=== PATIENT | female | born 1955 | race Caucasian/White ===

== ENCOUNTER 2016-10-07 01:48 | Emergency (ER) | payer OTHER ==
[~2016-10-07] VITALS: Ht 157.5 cm; Wt 75.0 kg
[2016-10-07 01:58] VITALS: BP 142/69; PULSE 70; RESP 18; TEMP 98.1; O2SAT 97
[2016-10-07] MEDS ORDERED: SODIUM CHLORIDE 0.9% FLUSH 5 ML FLUSH IVF PRN (02:00)
--- NOTE | 2016-10-07 02:00 | PD ---
HPI Chief Complaint: Abdominal Pain Time Seen by Provider: 01:54 Travel History International Travel<30 days: No Contact w/Intl Traveler<30days: No Traveled to known affect area: No History of Present Illness HPI This is a 61-year-old female who has a history of bipolar disorder who presents to the emergency department with lower abdominal pain that started 4 days ago, constant, worse in the evenings, stabbing, worse on the right, with no associated fever, chills, vomiting, diarrhea or constipation. She has had some nausea. She's never had pain like this before. She denies any dysuria or hematuria. She denies any history of abdominal surgeries. PFSH Past Medical History Hx Anticoagulant Therapy: Yes (ASA) Asthma: Yes Bipolar Disorder: Yes Anxiety: Yes Heart Rhythm Problems: No Cancer: Yes (hx of thyroid ca) Cardiac Catheterization: No Cardiovascular Problems: Yes (HTN) High Cholesterol: No Chemotherapy: No Congestive Heart Failure: No Cerebrovascular Accident: No Diabetes: No Diminished Hearing: No Heparin Induced Thrombocytopen: No Hypertension: Yes Respiratory: Yes (BRONCHITIS) Immunizations Current: Yes Seizures: Yes Menopausal: Yes : 1 Para: 2 : 1 Past Surgical History Section: Yes Coronary Artery Bypass Graft: No Hysterectomy: No Other Surgery: Yes (throat ca) Family History Family Hypercholesterolemia: Yes Social History Alcohol Use: Yes (OCC) Tobacco Use: Yes Substance Use: No Allergies-Medications (Allergen,Severity, Reaction): Uncoded Allergies: BP MED (Allergy, Severe, 04/13/15) Reported Meds & Prescriptions Reported Meds & Active Scripts Active Reported Alendronate (Alendronate Sodium) 5 Mg Tab Unknown Dose PO DAILY Depakote DR (Divalproex Sodium) 500 Mg Tabdr 500 Mg PO TID Zocor (Simvastatin) 10 Mg Tab Unknown Dose PO DAILY Fluoxetine (Fluoxetine HCl) 40 Mg Cap 40 Cap PO DAILY Aspirin 81 Mg Chew 800 Mg CHEW DAILY Review of Systems Except as stated in HPI: all other systems reviewed are Neg Physical Exam Narrative GENERAL:Well appearing, no acute distress SKIN: Warm and dry. HEAD: Atraumatic. Normocephalic. EYES: Pupils equal and round. No injection or drainage. ENT: Moist mucous membranes NECK: Trachea midline. CARDIOVASCULAR: Regular rate and rhythm. No murmur appreciated. RESPIRATORY: Clear to auscultation. Breath sounds equal bilaterally. GASTROINTESTINAL: Abdomen soft, tender to palpation in the right lower quadrant and suprapubic region with no guarding. MUSCULOSKELETAL: No obvious deformities. NEUROLOGICAL: Awake and alert. No obvious cranial nerve deficits. Moving all extremities. PSYCHIATRIC: Appropriate mood and affect; insight and judgment normal. Data Data Last Documented VS Vital Signs Date Time Temp Pulse Resp B/P Pulse Ox O2 Delivery O2 Flow Rate FiO2 10/07/16 04:04 73 18 164/69 97 Room Air 10/07/16 01:58 98.1 Orders Complete Blood Count With Diff (10/07/16 01:54) Comprehensive Metabolic Panel (10/07/16 01:54) Lipase (10/07/16 01:54) Urinalysis - C+S If Indicated (10/07/16 01:54) Ct Abd/Pel W Iv Contrast(Rout) (10/07/16 01:54) Iv Access Insert/Monitor (10/07/16 01:54) Ecg Monitoring (10/07/16 01:54) Oximetry (10/07/16 01:54) Sodium Chloride 0.9% Flush (Ns Flush) (10/07/16 02:00) Iodixanol 320 Inj (Rad Ct) (Visipaque 32 (10/07/16 03:23) Cath For Specimen (10/07/16 03:58) Labs Laboratory Tests Test 10/07/16 10/07/16 02:00 04:00 White Blood Count 7.9 TH/MM3 Red Blood Count 3.60 MIL/MM3 Hemoglobin 11.6 GM/DL Hematocrit 33.8 % Mean Corpuscular Volume 94.1 FL Mean Corpuscular Hemoglobin 32.1 PG Mean Corpuscular Hemoglobin 34.2 % Concent Red Cell Distribution Width 13.7 % Platelet Count 213 TH/MM3 Mean Platelet Volume 8.8 FL Neutrophils (%) (Auto) 47.7 % Lymphocytes (%) (Auto) 38.5 % Monocytes (%) (Auto) 9.7 % Eosinophils (%) (Auto) 3.0 % Basophils (%) (Auto) 1.1 % Neutrophils # (Auto) 3.7 TH/MM3 Lymphocytes # (Auto) 3.0 TH/MM3 Monocytes # (Auto) 0.8 TH/MM3 Eosinophils # (Auto) 0.2 TH/MM3 Basophils # (Auto) 0.1 TH/MM3 CBC Comment DIFF FINAL Differential Comment Sodium Level 142 MEQ/L Potassium Level 4.2 MEQ/L Chloride Level 108 MEQ/L Carbon Dioxide Level 25.8 MEQ/L Anion Gap 8 MEQ/L Blood Urea Nitrogen 25 MG/DL Creatinine 1.40 MG/DL Estimat Glomerular Filtration 38 ML/MIN Rate Random Glucose 100 MG/DL Calcium Level 8.3 MG/DL Total Bilirubin 0.1 MG/DL Aspartate Amino Transf 10 U/L (AST/SGOT) Alanine Aminotransferase 13 U/L (ALT/SGPT) Alkaline Phosphatase 66 U/L Total Protein 6.3 GM/DL Albumin 2.7 GM/DL Lipase 410 U/L Urine Color LIGHT-YELLOW Urine Turbidity CLEAR Urine pH 6.5 Urine Specific [place] 1.005 Urine Protein 30 mg/dL Urine Glucose (UA) NEG mg/dL Urine Ketones NEG mg/dL Urine Occult Blood NEG Urine Nitrite NEG Urine Bilirubin NEG Urine Urobilinogen LESS THAN 2.0 MG/DL Urine Leukocyte Esterase NEG Urine RBC 1 /hpf Urine WBC 2 /hpf Urine Bacteria RARE /hpf Microscopic Urinalysis Comment CULT NOT INDICATED MDM Medical Decision Making Medical Screen Exam Complete: Yes Emergency Medical Condition: Yes Interpretation(s) Afebrile, no tachycardia, hypertensive No leukocytosis Renal insufficiency similar to prior Lipase is slightly elevated Last 24 hours Impressions Abdomen/Pelvis CT 10/07/16 0154 Signed Impressions: Service Date/Time: Sunday, October 07, 2016 03:19 - CONCLUSION: 1. Moderate distention of the bladder. 2. Atherosclerosis. 3. Renal parenchymal thinning and numerous tiny cortical cysts. 4. Small hiatal hernia. Ramsey Esquivel MD Differential Diagnosis Appendicitis, colitis, nephrolithiasis, pyelonephritis, urinary tract infection Narrative Course This is a 61-year-old female who presents to the emergency department with lower abdominal pain, worse in the right concerning for appendicitis. She was placed on a monitor and an IV was established. Labs are obtained which were reassuring. CT abdomen and pelvis was negative for appendicitis and demonstrates some bladder distention. She was able to void without difficulty in the emergency Department. I put a [id number] ultrasound on her and she looked like she had about 300 cc of postvoid residual. I offered to place a Del Angel catheter to see if her symptoms resolved but she declined. She says she feels 100% better and she wants to sleep and go home. Diagnosis Primary Impression: Abdominal pain Qualified Code: R10.30 - Lower abdominal pain Patient Instructions: General Instructions Additional Instructions: If you develop severe or worsening abdominal pain, fever>100.4, persistent vomiting or inability to eat or drink return to the emergency department immediately. Follow up with your primary care physician in 1-2 days for a check-up. Med/Other Pt SpecificInfo: No Change to Meds Disposition: 01 DISCHARGE HOME Condition: Stable Farheen Feliz MD Oct 07, 2016 02:00
[2016-10-07] MEDS ORDERED: ZOCO10TA PO (02:08)
[2016-10-07] MEDS ORDERED: ALEN5TAB PO (02:08)
[2016-10-07] MEDS ORDERED: FLUO40CA PO (02:08)
[2016-10-07] MEDS ORDERED: DEPA500T PO (02:08)
[2016-10-07] MEDS ORDERED: ASPI81CH CHEW (02:08)
[2016-10-07 02:09] VITALS: O2SAT 99
[2016-10-07 02:17] LABS: AUTOMATED NEUTROPHIL # 3.7 TH/MM3 (1.8-7.7); BASOPHIL # 0.1 TH/MM3 (0-0.2); BASOPHIL % 1.1 % (0.0-2.0); EOSINOPHIL # 0.2 TH/MM3 (0-0.4); HEMATOCRIT 33.8 % (35.0-46.0); HEMO FLAGS DIFF FINAL; LYMPH % 38.5 % (9.0-44.0); MEAN CELL VOLUME 94.1 FL (80.0-100.0); MEAN CORPUSCULAR HEMOGLOBIN 32.1 PG (27.0-34.0); MEAN CORPUSCULAR HGB CONC 34.2 % (32.0-36.0); MONO % 9.7 % (0.0-8.0); NEUT % 47.7 % (16.0-70.0); PLATELET COUNT 213 TH/MM3 (150-450); RED CELL DISTRIBUTION WIDTH 13.7 % (11.6-17.2); WHITE BLOOD COUNT 7.9 TH/MM3 (4.0-11.0)
[2016-10-07 02:47] LABS: ALT (GPT) 13 U/L (10-53); ANION GAP 8 MEQ/L (5-15); AST (GOT) 10 U/L (15-37); BICARBONATE 25.8 MEQ/L (21.0-32.0); BLOOD UREA NITROGEN 25 MG/DL (7-18); CHLORIDE 108 MEQ/L (98-107); GLOMERULAR FILTRATION RATE 38 ML/MIN (>89); POTASSIUM 4.2 MEQ/L (3.5-5.1); SODIUM (NA) 142 MEQ/L (136-145)
[2016-10-07 02:49] LABS: ALKALINE PHOSPHATASE 66 U/L (45-117); TOTAL BILIRUBIN ADULT 0.1 MG/DL (0.2-1.0)
[2016-10-07] MEDS ORDERED: IODIXANOL 320 MG/ML 10 ML VIAL (for Rad CT) IV ONE (03:23)
--- NOTE | 2016-10-07 03:38 | RADRPT ---
EXAM DATE/TIME: 10/07/2016 03:19 [facility] COMPARISON: No previous studies available for comparison. INDICATIONS : Abdominal pain. IV CONTRAST: 50 cc Visipaque (iodixanol) IV ORAL CONTRAST: No oral contrast ingested. RADIATION DOSE: 9.35 CTDIvol (mGy) MEDICAL HISTORY : Hypertension. Carcinoma, pharyngeal. SURGICAL HISTORY : section. ENCOUNTER: Initial ACUITY: 4 - 6 months PAIN SCALE: 7/10 LOCATION: abdomen TECHNIQUE: Volumetric scanning of the abdomen and pelvis was performed. Using automated exposure control and ad justment of the mA and/or kV according to patient size, radiation dose was kept as low as reasonably achievable to obtain optimal diagnostic quality images. FINDINGS: There is a small hiatal hernia noted. Gallbladder is contracted. Liver, spleen, pancreas, bilateral a drenal glands are unremarkable. There are tiny cortical cysts present within both kidneys with mild p arenchymal thinning. Atherosclerotic calcifications of the aorta and iliac vessels are seen. There is moderate distention of the urinary bladder. The uterus and adnexa are unremarkable. No evidence of b owel obstruction, free fluid or free air. No adenopathy or aneurysm. There is severe degenerative dis c disease at the lumbosacral junction. The lung bases are clear. CONCLUSION: 1. Moderate distention of the bladder. 2. Atherosclerosis. 3. Renal parenchymal thinning and numerous tiny cortical cysts. 4. Small hiatal hernia. Ramsey Esquivel MD on October 07, 2016 at 3:34 Board Certified Radiologist. This report was verified electronically.
[2016-10-07 04:04] VITALS: BP 164/69; PULSE 73; RESP 18; O2SAT 97
[2016-10-07 04:25] LABS: BACTERIA, URINE RARE /hpf; BLOOD, URINE NEG (NEG); COMMENT (UR) CULT NOT INDICATED; CULTURE IF INDICATED CULT NOT INDICATED; GLUCOSE,URINE NEG (NEG); KETONE, URINE NEG (NEG); NITRITE,URINE NEG (NEG); PH, URINE 6.5 (5.0-8.5); URINE COLOR LIGHT-YELLOW (YELLW/STRAW)
[2016-10-07 05:42] VITALS: BP 164/69; PULSE 75; RESP 18; O2SAT 97
== END 2016-10-07 06:22 | disposition home or self-care (01) ==
LOC: NEPC 01:48
DX: R10.30 Lower abdominal pain, unspecified (principal)
CPT/HCPCS: 74177; 80053; 81001; 83690; 85025; 99284; Q9967

== ENCOUNTER 2016-11-27 21:56 | Emergency (ER) | payer OTHER ==
[~2016-11-27 21:56] MED LIST: ALEN5TAB PO; ASPI81CH CHEW; DEPA500T PO; FLUO40CA PO; ZOCO10TA PO
[2016-11-27 21:59] VITALS: BP 132/71; PULSE 69; RESP 16; TEMP 97.6; O2SAT 97
== END 2016-11-27 22:59 | disposition left against medical advice (07) ==
LOC: NED 21:56
DX: R68.89 Other general symptoms and signs (principal)
CPT/HCPCS: 99281

== ENCOUNTER 2016-12-08 19:09 | Emergency (ER) | payer OTHER ==
[2016-12-08 20:09] VITALS: BP 188/82; PULSE 82; RESP 17; TEMP 98.6; O2SAT 94
[2016-12-08] MEDS ORDERED: SODIUM CHLOR 0.9% 1000 ML INJ 1,000 ML IV SCH (20:52)
[2016-12-08] MEDS ORDERED: SODIUM CHLORIDE 0.9% FLUSH 10 ML FLUSH IV FLUSH PRN (21:00)
[2016-12-08] MEDS ORDERED: FAMOTIDINE 20 MG/2 ML VIAL IV PUSH ONE (21:00)
[2016-12-08] MEDS ORDERED: ONDANSETRON HCL 4 MG/2 ML VIAL IVP ONE (21:00)
[2016-12-08] MEDS ORDERED: MORPHINE SULFATE 4 MG/ML INJ IV PUSH ONE (21:00)
--- NOTE | 2016-12-08 21:00 | PD ---
HPI Chief Complaint: Abdominal Pain Time Seen by Provider: 20:42 Travel History International Travel<30 days: No Contact w/Intl Traveler<30days: No History of Present Illness HPI Patient is a 61-year-old female with history of bipolar disorder who presents to emergency room with complaints of abdominal pain. She reports that she has been having increased abdominal pain for the past 3-4 years. Patient reports that the pain is located in her upper abdomen, reports that she was able to eat and drink and did have a full dinner tonight. Reports that after she ate, her abdominal pain became unbearable. Patient denies n/v. Denies constipation/ diarrhea. Denies chest pain/sob. Denies fever/chills. No other c/o. PFSH Past Medical History Hx Anticoagulant Therapy: Yes (ASA) Asthma: Yes Bipolar Disorder: Yes Anxiety: Yes Heart Rhythm Problems: No Cancer: Yes (hx of thyroid ca) Cardiac Catheterization: No Cardiovascular Problems: Yes (HTN) High Cholesterol: No Chemotherapy: No Congestive Heart Failure: No Cerebrovascular Accident: No Diabetes: No Diminished Hearing: No Heparin Induced Thrombocytopen: No Hypertension: Yes Respiratory: Yes (BRONCHITIS) Immunizations Current: Yes Seizures: Yes Menopausal: Yes : 1 Para: 2 : 1 Past Surgical History Section: Yes Coronary Artery Bypass Graft: No Hysterectomy: No Other Surgery: Yes (throat ca) Family History Family Hypercholesterolemia: Yes Social History Alcohol Use: Yes (OCC) Tobacco Use: Yes Substance Use: No Allergies-Medications (Allergen,Severity, Reaction): Uncoded Allergies: BP MED (Allergy, Severe, 04/13/15) Reported Meds & Prescriptions Reported Meds & Active Scripts Active Reported Alendronate (Alendronate Sodium) 5 Mg Tab Unknown Dose PO DAILY Depakote DR (Divalproex Sodium) 500 Mg Tabdr 500 Mg PO TID Zocor (Simvastatin) 10 Mg Tab Unknown Dose PO DAILY Fluoxetine (Fluoxetine HCl) 40 Mg Cap 40 Cap PO DAILY Aspirin 81 Mg Chew 800 Mg CHEW DAILY Review of Systems Gastrointestinal: Positive: Abdominal Pain Physical Exam Narrative GENERAL: mild distress SKIN: Focused skin assessment warm/dry. HEAD: Atraumatic. Normocephalic. EYES: Pupils equal and round. No scleral icterus. No injection or drainage. ENT: No nasal bleeding or discharge. Mucous membranes pink and moist. NECK: Trachea midline. No JVD. CARDIOVASCULAR: Regular rate and rhythm. No murmur appreciated. RESPIRATORY: No accessory muscle use. Clear to auscultation. Breath sounds equal bilaterally. GASTROINTESTINAL: Abdomen soft,tenderness to LUQ to epigastrium with no rebound or guarding MUSCULOSKELETAL: No obvious deformities. No clubbing. No cyanosis. No edema. NEUROLOGICAL: Awake and alert. No obvious cranial nerve deficits. Motor grossly within normal limits. Normal speech. PSYCHIATRIC: Appropriate mood and affect; insight and judgment normal. Data Data Last Documented VS Vital Signs Date Time Temp Pulse Resp B/P Pulse Ox O2 Delivery O2 Flow Rate FiO2 12/08/16 21:57 98.4 72 18 124/60 97 Room Air Orders Valproic Acid (Depakene) (12/08/16 20:52) Complete Blood Count With Diff (12/08/16 20:52) Comprehensive Metabolic Panel (12/08/16 20:52) Lipase (12/08/16 20:52) Prothrombin Time / Inr (Pt) (12/08/16 20:52) Act Partial Throm Time (Ptt) (12/08/16 20:52) Urinalysis - C+S If Indicated (12/08/16 20:52) Iv Access Insert/Monitor (12/08/16 20:52) Ecg Monitoring (12/08/16 20:52) Morphine Inj (Morphine Inj) (12/08/16 21:00) Ondansetron Inj (Zofran Inj) (12/08/16 21:00) Sodium Chlor 0.9% 1000 Ml Inj (Ns 1000 M (12/08/16 20:52) Sodium Chloride 0.9% Flush (Ns Flush) (12/08/16 21:00) Electrocardiogram (12/08/16 20:52) Famotidine Inj (Pepcid Inj) (12/08/16 21:00) Ct Abd/Pel W/O Iv Contrast (12/08/16 22:31) Labs Laboratory Tests Test 12/08/16 12/08/16 21:10 22:20 White Blood Count 10.1 TH/MM3 Red Blood Count 3.65 MIL/MM3 Hemoglobin 11.6 GM/DL Hematocrit 34.5 % Mean Corpuscular Volume 94.3 FL Mean Corpuscular Hemoglobin 31.7 PG Mean Corpuscular Hemoglobin 33.6 % Concent Red Cell Distribution Width 13.5 % Platelet Count 246 TH/MM3 Mean Platelet Volume 8.9 FL Neutrophils (%) (Auto) 57.3 % Lymphocytes (%) (Auto) 31.5 % Monocytes (%) (Auto) 8.0 % Eosinophils (%) (Auto) 2.5 % Basophils (%) (Auto) 0.7 % Neutrophils # (Auto) 5.8 TH/MM3 Lymphocytes # (Auto) 3.2 TH/MM3 Monocytes # (Auto) 0.8 TH/MM3 Eosinophils # (Auto) 0.3 TH/MM3 Basophils # (Auto) 0.1 TH/MM3 CBC Comment DIFF FINAL Differential Comment Prothrombin Time 10.8 SEC Prothromb Time International 1.0 RATIO Ratio Activated Partial 33.0 SEC Thromboplast Time Sodium Level 140 MEQ/L Potassium Level 4.5 MEQ/L Chloride Level 105 MEQ/L Carbon Dioxide Level 26.3 MEQ/L Anion Gap 9 MEQ/L Blood Urea Nitrogen 28 MG/DL Creatinine 2.04 MG/DL Estimat Glomerular Filtration 25 ML/MIN Rate Random Glucose 80 MG/DL Calcium Level 9.3 MG/DL Total Bilirubin 0.2 MG/DL Aspartate Amino Transf 10 U/L (AST/SGOT) Alanine Aminotransferase 13 U/L (ALT/SGPT) Alkaline Phosphatase 71 U/L Total Protein 7.5 GM/DL Albumin 3.0 GM/DL Lipase 172 U/L Valproic Acid (Depakene) Level 118 MCG/ML Urine Color COLORLESS Urine Turbidity CLEAR Urine pH 7.0 Urine Specific [place] 1.003 Urine Protein 30 mg/dL Urine Glucose (UA) NEG mg/dL Urine Ketones NEG mg/dL Urine Occult Blood NEG Urine Nitrite NEG Urine Bilirubin NEG Urine Urobilinogen LESS THAN 2.0 MG/DL Urine Leukocyte Esterase NEG Urine RBC LESS THAN 1 /hpf Urine WBC 1 /hpf Microscopic Urinalysis Comment CULT NOT INDICATED MDM Medical Decision Making Medical Screen Exam Complete: Yes Emergency Medical Condition: Yes Interpretation(s) ekg at 210: NSR 71bmp, qt/qtc: 368/391, no acute st or t wave changes Vital Signs Date Time Temp Pulse Resp B/P Pulse Ox O2 Delivery O2 Flow Rate FiO2 12/08/16 20:09 98.6 82 17 188/82 94 Differential Diagnosis Cholecystitis, gastroenteritis, colitis, nephrolithiasis, pyelonephritis, urinary tract infection, gastric ulcer, gastritis, pancreatitis Narrative Course Patient is a 61-year-old female who presents to emergency room with complaints of acute on chronic abdominal pain. Patient reports that she has been having increased upper abdominal pain for the past few years, worse of symptoms or worse today. Patient with no fevers or chills, denies any nausea or vomiting. Patient reports that she is not an alcoholic and does not drink alcohol. An IV line was established, plan to obtain labs as well as liver function test. Will administer medication for pain. CT of the abdomen and pelvis was ordered for further evaluation of her abdominal pain. AMA: The risks of leaving against medical advice without further evaluation treatment were discussed with the patient. These risks include cardiac dysfunction, cardiac dysrhythmia, possible heart attack, possible stroke or . The patient indicated understanding of these risks and appeared to have the capacity to make this decision. Patient requests leave the hospital AGAINST MEDICAL ADVICE. Patient requesting a cup of coffee and cup of water prior to leaving AMA. Patient reports that she doesn't have time to stay in the ER and wait for her studies to be completed and she has to go. She understands that she may return to the ER at any time for re-evaluation of her symptoms. She will follow up with her primary care doctor as soon as possible. Diagnosis Primary Impression: Abdominal pain Qualified Code: R10.10 - Pain of upper abdomen Additional Impressions: Renal insufficiency elevated depakote level Patient Instructions: General Instructions Additional Instructions: You may return to the emergency room anytime for reevaluation of your symptoms Please call your primary care doctor for earliest follow-up Disposition: AGAINST MEDICAL ADVICE Condition: Serious Saige Carpiofer Junie GALINDO Dec 08, 2016 21:00
[2016-12-08 21:36] LABS: AUTOMATED NEUTROPHIL # 5.8 TH/MM3 (1.8-7.7); BASOPHIL # 0.1 TH/MM3 (0-0.2); BASOPHIL % 0.7 % (0.0-2.0); EOSINOPHIL # 0.3 TH/MM3 (0-0.4); EOSINOPHIL % 2.5 % (0.0-4.0); HEMATOCRIT 34.5 % (35.0-46.0); HEMO FLAGS DIFF FINAL; LYMPH % 31.5 % (9.0-44.0); LYMPHOCYTE # 3.2 TH/MM3 (1.0-4.8); MEAN CELL VOLUME 94.3 FL (80.0-100.0); MEAN CORPUSCULAR HEMOGLOBIN 31.7 PG (27.0-34.0); MEAN CORPUSCULAR HGB CONC 33.6 % (32.0-36.0); NEUT % 57.3 % (16.0-70.0); PLATELET COUNT 246 TH/MM3 (150-450); RED BLOOD COUNT 3.65 MIL/MM3 (4.00-5.30); RED CELL DISTRIBUTION WIDTH 13.5 % (11.6-17.2); WHITE BLOOD COUNT 10.1 TH/MM3 (4.0-11.0)
[2016-12-08 21:41] LABS: PROTHROMBIN TIME - PATIENT 10.8 SEC (9.8-11.6)
[2016-12-08 21:55] LABS: ANION GAP 9 MEQ/L (5-15); AST (GOT) 10 U/L (15-37); BICARBONATE 26.3 MEQ/L (21.0-32.0); BLOOD UREA NITROGEN 28 MG/DL (7-18); CHLORIDE 105 MEQ/L (98-107); GLOMERULAR FILTRATION RATE 25 ML/MIN (>89); POTASSIUM 4.5 MEQ/L (3.5-5.1); SODIUM (NA) 140 MEQ/L (136-145)
[2016-12-08 21:57] VITALS: BP 124/60; PULSE 72; RESP 18; TEMP 98.4; O2SAT 97
[2016-12-08 22:01] LABS: ALKALINE PHOSPHATASE 71 U/L (45-117); ALT (GPT) 13 U/L (10-53); TOTAL BILIRUBIN ADULT 0.2 MG/DL (0.2-1.0)
[2016-12-08 22:30] LABS: BLOOD, URINE NEG (NEG); COMMENT (UR) CULT NOT INDICATED; CULTURE IF INDICATED CULT NOT INDICATED; GLUCOSE,URINE NEG (NEG); KETONE, URINE NEG (NEG); NITRITE,URINE NEG (NEG); URINE COLOR COLORLESS (YELLW/STRAW)
--- NOTE | 2016-12-10 21:24 | EKG ---
Date Performed: 12/08/2016 Time Performed: 21:09:12 PTAGE: 61 years EKG: Sinus rhythm NORMAL ECG PREVIOUS TRACING : 07/14/2016 05.24 DOCTOR: Claudia Loaiza Interpretating Date/Time 12/10/2016 21:21:34
== END 2016-12-09 01:43 | disposition left against medical advice (07) ==
LOC: NEDAMB 19:09 → NEPA 12-09 01:43
DX: R10.10 Upper abdominal pain, unspecified (principal); N28.9 Disorder of kidney and ureter, unspecified; I10 Essential (primary) hypertension; Z72.0 Tobacco use
CPT/HCPCS: 80053; 80164; 81001; 83690; 85025; 85610; 85730; 93005; 96374; 96375; 99284; J2405; J7030

== ENCOUNTER 2017-02-03 20:41 | Emergency (ER) | payer OTHER ==
[~2017-02-03] VITALS: Ht 165.1 cm; Wt 75.0 kg
[2017-02-03 20:59] VITALS: BP 185/80; PULSE 71; RESP 20; TEMP 98.2; O2SAT 100
[2017-02-03 21:24] VITALS: BP 171/74
[2017-02-03] MEDS ORDERED: SIMV20TA PO (21:24)
[2017-02-03] MEDS ORDERED: LORA1TAB12 PO (21:24)
[2017-02-03 21:29] VITALS: BP 145/58; PULSE 68
[2017-02-03] MEDS ORDERED: ASPIRIN 81 MG CHEW TAB PO ONE (21:30)
[2017-02-03] MEDS ORDERED: SODIUM CHLORIDE 0.9% FLUSH 10 ML FLUSH IVF PRN (21:30)
[2017-02-03] MEDS: NITROGLYCERIN 0.4 MG SL 25 TABS/BTL SL SCH ×3 (21:40→21:52)
[2017-02-03 21:42] LABS: AUTOMATED NEUTROPHIL # 5.3 TH/MM3 (1.8-7.7); BASOPHIL # 0.1 TH/MM3 (0-0.2); BASOPHIL % 1.2 % (0.0-2.0); EOSINOPHIL # 0.3 TH/MM3 (0-0.4); EOSINOPHIL % 2.7 % (0.0-4.0); HEMATOCRIT 38.5 % (35.0-46.0); HEMO FLAGS DIFF FINAL; LYMPH % 34.9 % (9.0-44.0); LYMPHOCYTE # 3.4 TH/MM3 (1.0-4.8); MEAN CELL VOLUME 93.5 FL (80.0-100.0); MEAN CORPUSCULAR HEMOGLOBIN 32.2 PG (27.0-34.0); MEAN CORPUSCULAR HGB CONC 34.4 % (32.0-36.0); MONO % 7.3 % (0.0-8.0); NEUT % 53.9 % (16.0-70.0); PLATELET COUNT 233 TH/MM3 (150-450); RED BLOOD COUNT 4.11 MIL/MM3 (4.00-5.30); RED CELL DISTRIBUTION WIDTH 13.6 % (11.6-17.2); WHITE BLOOD COUNT 9.8 TH/MM3 (4.0-11.0)
--- NOTE | 2017-02-03 22:01 | RADRPT ---
EXAM DATE/TIME: 02/03/2017 21:41 [facility] COMPARISON: CHEST SINGLE AP, July 14, 2016, 4:39. INDICATIONS : CHEST PAIN MEDICAL HISTORY : Hypertension. Carcinoma, pharyngeal SURGICAL HISTORY : section. ENCOUNTER: Initial ACUITY: 1 day PAIN SCORE: 6/10 LOCATION: Bilateral chest FINDINGS: A single view of the chest demonstrates the lungs to be symmetrically aerated without evidence of mas s, infiltrate or effusion. The cardiomediastinal contours are unremarkable. Osseous structures are intact. CONCLUSION: No acute disease. Hussain Contreras MD FACR on February 03, 2017 at 22:00 Board Certified Radiologist. This report was verified electronically.
[2017-02-03 22:05] LABS: PROTHROMBIN TIME - PATIENT 10.8 SEC (9.8-11.6)
[2017-02-03 22:11] LABS: ANION GAP 8 MEQ/L (5-15); BICARBONATE 27.9 MEQ/L (21.0-32.0); BLOOD UREA NITROGEN 21 MG/DL (7-18); CHLORIDE 106 MEQ/L (98-107); CREATINE KINASE 104 U/L (26-192); GLOMERULAR FILTRATION RATE 29 ML/MIN (>89); MAGNESIUM 2.4 MG/DL (1.5-2.5); POTASSIUM 4.5 MEQ/L (3.5-5.1); SODIUM (NA) 142 MEQ/L (136-145)
[2017-02-03 22:24] LABS: CKMB 1.9 NG/ML (0.5-3.6)
[2017-02-03 23:41] LABS: BLOOD, URINE NEG (NEG); GLUCOSE,URINE NEG (NEG); KETONE, URINE NEG (NEG); NITRITE,URINE NEG (NEG); URINE COLOR LIGHT-YELLOW (YELLW/STRAW)
[2017-02-03 23:45] LABS: COMMENT (UR) CULT NOT INDICATED; CULTURE IF INDICATED CULT NOT INDICATED
--- NOTE | 2017-02-03 23:52 | PD ---
HPI Chief Complaint: Chest Pain Time Seen by Provider: 21:17 Travel History International Travel<30 days: No Contact w/Intl Traveler<30days: No Traveled to known affect area: No History of Present Illness HPI 61 year-old female presents to the emergency department by EMS transport for complaint of chest pain cough anxiety and pain all over for an indeterminate amount of time. Patient initially states for the past 3 days then also reports over the past 2 weeks. Patient is unable to determine if she has or has not had fever but denies any chills. Patient reports intermittently she's had yellow phlegm production. Patient states discomfort is worsened with cough and movement or activity. Patient rates discomfort 5-7/10 in intensity. Patient also complains of urinary frequency. Patient denies flank pain. No report of shortness of breath nausea vomiting diarrhea flank pain joint pain or swelling. Patient has taken no medications for her symptoms. Patient denies any known CAD PFSH Past Medical History Narrative Medical Hypertension bipolar disorder dyslipidemia prior thyroid cancer asthma tobacco use; nursing notes reviewed Hx Anticoagulant Therapy: Yes (ASA) Asthma: Yes Bipolar Disorder: Yes Anxiety: Yes Heart Rhythm Problems: No Cancer: Yes (hx of thyroid ca) Cardiac Catheterization: No Cardiovascular Problems: Yes (HTN) High Cholesterol: No Chemotherapy: No Congestive Heart Failure: No Cerebrovascular Accident: No Diabetes: No Diminished Hearing: No Heparin Induced Thrombocytopen: No Hypertension: Yes Respiratory: Yes (BRONCHITIS) Immunizations Current: Yes Seizures: Yes Tetanus Vaccination: Unknown Influenza Vaccination: No Menopausal: Yes : 1 Para: 2 : 1 Past Surgical History Section: Yes Coronary Artery Bypass Graft: No Hysterectomy: No Other Surgery: Yes (throat ca) Family History Family Myocardial Infarction: Yes Family Hypercholesterolemia: Yes Social History Alcohol Use: Yes (OCC) Tobacco Use: Yes (1ppd) Substance Use: No Allergies-Medications (Allergen,Severity, Reaction): Uncoded Allergies: BP MED (Allergy, Severe, 04/13/15) Reported Meds & Prescriptions Reported Meds & Active Scripts Active Reported Lorazepam 1 Mg Tab 1 Mg PO HS PRN Simvastatin 20 Mg Tab 20 Mg PO DAILY Alendronate (Alendronate Sodium) 5 Mg Tab Unknown Dose PO DAILY Depakote DR (Divalproex Sodium) 500 Mg Tabdr 500 Mg PO TID Fluoxetine (Fluoxetine HCl) 40 Mg Cap 40 Cap PO DAILY Aspirin 81 Mg Chew 800 Mg CHEW DAILY Review of Systems Except as stated in HPI: all other systems reviewed are Neg General / Constitutional: No: Fever, Chills HENT: No: Congestion Cardiovascular: Positive: Chest Pain or Discomfort Respiratory: Positive: Cough Gastrointestinal: No: Abdominal Pain Genitourinary: Positive: Dysuria, No: Flank Pain Musculoskeletal: No: Myalgias, Arthralgias, Edema Skin: No Rash Neurologic: No: Weakness Psychiatric: Positive: Anxiety Hematologic/Lymphatic: No: Lymph Node Enlargement Physical Exam Narrative GENERAL: Well-developed well-nourished pleasant female no acute distress no respiratory distress SKIN: Warm and dry. HEAD: Normocephalic. EYES: No scleral icterus. No injection or drainage. NECK: Supple, trachea midline. No JVD or lymphadenopathy. CARDIOVASCULAR: Regular rate and rhythm without murmurs, gallops, or rubs. RESPIRATORY: Breath sounds equal bilaterally. No accessory muscle use. GASTROINTESTINAL: Abdomen soft, non-tender, nondistended. MUSCULOSKELETAL: No cyanosis, or edema. BACK: Nontender without obvious deformity. No CVA tenderness. Data Data Last Documented VS Vital Signs Date Time Temp Pulse Resp B/P Pulse Ox O2 Delivery O2 Flow Rate FiO2 02/03/17 21:29 68 145/58 02/03/17 21:24 100 Nasal Cannula 2 02/03/17 21:16 100 02/03/17 20:59 98.2 20 Orders Electrocardiogram (02/03/17 21:17) Basic Metabolic Panel (Bmp) (02/03/17 21:17) B-Type Natriuretic Peptide (02/03/17 21:17) Ckmb (Isoenzyme) Profile (02/03/17 21:17) Complete Blood Count With Diff (02/03/17 21:17) Magnesium (Mg) (02/03/17 21:17) Prothrombin Time / Inr (Pt) (02/03/17 21:17) Act Partial Throm Time (Ptt) (02/03/17 21:17) Troponin I (02/03/17 21:17) Chest, Single Ap (02/03/17 21:17) Ecg Monitoring (02/03/17 21:17) Bilateral Bp Monitoring (02/03/17 21:17) Iv Access Insert/Monitor (02/03/17 21:17) Oximetry (02/03/17 21:17) Oxygen Administration (02/03/17 21:17) Aspirin Chew (Aspirin Chew) (02/03/17 21:30) Sodium Chloride 0.9% Flush (Ns Flush) (02/03/17 21:30) Nitroglycerin Sl (Nitrostat Sl) (02/03/17 21:30) Urinalysis - C+S If Indicated (02/03/17 21:17) CKMB (02/03/17 21:20) CKMB% (02/03/17 21:20) Labs Laboratory Tests Test 02/03/17 21:20 White Blood Count 9.8 TH/MM3 Red Blood Count 4.11 MIL/MM3 Hemoglobin 13.2 GM/DL Hematocrit 38.5 % Mean Corpuscular Volume 93.5 FL Mean Corpuscular Hemoglobin 32.2 PG Mean Corpuscular Hemoglobin 34.4 % Concent Red Cell Distribution Width 13.6 % Platelet Count 233 TH/MM3 Mean Platelet Volume 9.7 FL Neutrophils (%) (Auto) 53.9 % Lymphocytes (%) (Auto) 34.9 % Monocytes (%) (Auto) 7.3 % Eosinophils (%) (Auto) 2.7 % Basophils (%) (Auto) 1.2 % Neutrophils # (Auto) 5.3 TH/MM3 Lymphocytes # (Auto) 3.4 TH/MM3 Monocytes # (Auto) 0.7 TH/MM3 Eosinophils # (Auto) 0.3 TH/MM3 Basophils # (Auto) 0.1 TH/MM3 CBC Comment DIFF FINAL Differential Comment Prothrombin Time 10.8 SEC Prothromb Time International 1.0 RATIO Ratio Activated Partial 32.0 SEC Thromboplast Time Sodium Level 142 MEQ/L Potassium Level 4.5 MEQ/L Chloride Level 106 MEQ/L Carbon Dioxide Level 27.9 MEQ/L Anion Gap 8 MEQ/L Blood Urea Nitrogen 21 MG/DL Creatinine 1.76 MG/DL Estimat Glomerular Filtration 29 ML/MIN Rate Random Glucose 81 MG/DL Calcium Level 8.6 MG/DL Magnesium Level 2.4 MG/DL Total Creatine Kinase 104 U/L Creatine Kinase MB 1.9 NG/ML Troponin I LESS THAN 0.02 NG/ML B-Type Natriuretic Peptide 39 PG/ML MDM Medical Decision Making Medical Screen Exam Complete: Yes Emergency Medical Condition: Yes Medical Record Reviewed: Yes Interpretation(s) EKG normal sinus rhythm rate [address] elevation or injury pattern change noted Last Impressions Chest X-Ray 02/03/172116 Signed Impressions: Service Date/Time: Friday, February 03, 2017 21:41 - CONCLUSION: No acute disease. Hussain Contreras MD FACR CBC & BMP Diagram 02/03/17 21:20 Vital Signs Date Time Temp Pulse Resp B/P Pulse Ox O2 Delivery O2 Flow Rate FiO2 02/03/17 21:29 68 145/58 02/03/17 21:24 171/74 02/03/17 21:24 100 Nasal Cannula 2 02/03/17 21:16 Room Air 100 02/03/17 20:59 98.2 71 20 185/80 100 Room Air Differential Diagnosis Chest pain, atypical chest pain, ACS, UT, pneumonia, pleurisy, bronchitis, musculoskeletal pain, UTI Narrative Course Patient placed on cardiac cath technician IV access obtained specimens collected and sent for resulting EKG performed reveals no acute injury pattern changed chest x -ray ordered The patient was administered aspirin and ordered sublingual nitroglycerin Patient in laboratory but the emergency department reporting that she feels well is desirous of being discharged to home At this point in time patient presents with nonspecific atypical chest pain that appears to be noncardiac at this time patient we discharged to follow-up with her primary care provider Diagnosis Primary Impression: Atypical chest pain Referrals: Primary Care Physician call for appointment Patient Instructions: General Instructions Additional Instructions: Take 1 low-dose aspirin daily Continue chronic medications as presently prescribed Return to the emergency department for any concerns or change in condition Follow-up with your primary care provider Med/Other Pt SpecificInfo: No Change to Meds Disposition: 01 DISCHARGE HOME Condition: Mile Zhang MD February 03, 2017 23:52
--- NOTE | 2017-02-04 15:21 | EKG ---
Date Performed: 02/03/2017 Time Performed: 21:33:10 PTAGE: 61 years EKG: Sinus rhythm NORMAL ECG PREVIOUS TRACING : 12/08/2016 21.09 Since previous tracing, no significant change noted DOCTOR: Chente Mercado Interpretating Date/Time 02/04/2017 15:20:12
== END 2017-02-04 00:27 | disposition home or self-care (01) ==
LOC: NEPC 20:41
DX: R07.89 Other chest pain (principal); R05 Cough; F41.9 Anxiety disorder, unspecified; M79.1 Myalgia; R35.0 Frequency of micturition; E78.5 Hyperlipidemia, unspecified; I10 Essential (primary) hypertension; F17.200 Nicotine dependence, unspecified, uncomplicated; Z79.82 Long term (current) use of aspirin; Z79.899 Other long term (current) drug therapy; Z86.59 Personal history of other mental and behavioral disorders; Z85.850 Personal history of malignant neoplasm of thyroid; Z87.09 Personal history of other diseases of the respiratory system; Z86.79 Personal history of other diseases of the circulatory system; Z86.69 Personal history of other diseases of the nervous system and sense organs
CPT/HCPCS: 71010; 80048; 81001; 82550; 82552; 83735; 83880; 84484; 85025; 85610; 85730; 93005; 99285

== ENCOUNTER 2017-05-16 22:15 | Emergency (ER) | payer OTHER ==
[~2017-05-16] VITALS: Ht 154.9 cm; Wt 65.5 kg
[~2017-05-16 22:15] MED LIST changes: +LORA1TAB12 PO; +SIMV20TA PO; -ZOCO10TA PO
[2017-05-16 22:23] VITALS: BP 212/90; PULSE 77; RESP 16; TEMP 99.6; O2SAT 97
[2017-05-16] MEDS ORDERED: ALEN1TAB48 PO (22:45)
--- NOTE | 2017-05-16 23:02 | PD ---
HPI Chief Complaint: Abdominal Pain Time Seen by Provider: 22:43 Travel History International Travel<30 days: No Contact w/Intl Traveler<30days: No Traveled to known affect area: No History of Present Illness HPI The patient is a 61 year old female who presents to the [facility] emergency department with a history of abdominal pain and back pain that began a "while a go." She reports that she has had this for a couple of years when I ask her to clarify how long a while ago is. She reports that the pain is sharp in character. It moves around the abdomen. It is also present in her flanks intermittently. She reports that she came to the emergency department today as the pain seemed to be worse. She reports that the pain comes and goes. It is 7 /10 in severity currently. She denies urinary symptoms. She denies having any n /v/d associated with it. She went to the psychiatrist and had some blood work done and her Depakote level was elevated approximately 12 days ago. She reports that she did not have any changes to her Depakote dose at that time. She reports that she was also told that she had other blood work abnormalities, however she does not know what they were. She also reports that in the past she has been told that she has a problem with her kidneys, however she is unsure exactly what it is. The patient was last seen in the emergency department for abdominal pain and had a CAT scan September 2016. At that time the patient was noted to have cortical kidney cysts, small hiatal hernia, otherwise no acute abnormality. On review of systems, the patient denies any recent fevers, worsening cough or congestion neck pain, chest pain, shortness of breath, vomiting, diarrhea, or neurologic symptoms. The patient denies having any vaginal discharge or bleeding. She denies being sexually active. PCP: Dr. Randolph. Psych: Dr. Sonia JOHNSON Past Medical History Narrative Medical The patient's past medical history is significant for hypertension, bipolar disorder, dyslipidemia, tobacco abuse, thyroid cancer, kidney function problem. Hx Anticoagulant Therapy: Yes (Aspirin) Asthma: Yes Bipolar Disorder: Yes Anxiety: Yes Heart Rhythm Problems: No Cancer: Yes (hx of thyroid ca) Cardiac Catheterization: No Cardiovascular Problems: Yes (HTN) High Cholesterol: No Chemotherapy: No Congestive Heart Failure: No Cerebrovascular Accident: No Diabetes: No Diminished Hearing: No Heparin Induced Thrombocytopen: No Hypertension: Yes Respiratory: Yes (BRONCHITIS) Immunizations Current: Yes Seizures: Yes Tetanus Vaccination: Unknown Influenza Vaccination: No ?: Not Menopausal: Yes : 1 Para: 2 : 1 Past Surgical History Narrative Surgical The patient's past surgical history is significant for partial thyroidectomy, c- section x1, . Section: Yes Coronary Artery Bypass Graft: No Hysterectomy: No Other Surgery: Yes (THROAT CANCER) Family History Family Myocardial Infarction: Yes Family Hypercholesterolemia: Yes Social History Alcohol Use: No Tobacco Use: Yes (1PPD) Substance Use: No Allergies-Medications (Allergen,Severity, Reaction): Uncoded Allergies: BP MED (Allergy, Severe, 04/13/15) Reported Meds & Prescriptions Reported Meds & Active Scripts Active Reported Alendronate (Alendronate Sodium) 70 Mg Tab 70 Mg PO Q7D Lorazepam 1 Mg Tab 1 Mg PO HS PRN Simvastatin 20 Mg Tab 20 Mg PO DAILY Depakote DR (Divalproex Sodium) 500 Mg Tabdr 500 Mg PO TID Fluoxetine (Fluoxetine HCl) 40 Mg Cap 40 Cap PO DAILY Aspirin 81 Mg Chew 800 Mg CHEW DAILY Review of Systems Except as stated in HPI: all other systems reviewed are Neg General / Constitutional: No: Fever Eyes: No: Visual changes HENT: No: Headaches Cardiovascular: No: Chest Pain or Discomfort Respiratory: No: Shortness of Breath Gastrointestinal: Positive: Abdominal Pain, No: Nausea, Vomiting, Diarrhea, Changes in Bowel Habits, Indigestion, Loss of Appetite Genitourinary: Positive: Flank Pain, No: Urgency, Frequency, Dysuria Musculoskeletal: Positive: Myalgias, No: Pain Skin: No Rash Neurologic: Positive: Dizziness, No: Weakness, Focal Abnormalities, Change in Mentation, Slurred Speech, Sensory Disturbance Psychiatric: No: Depression Endocrine: No: Polydipsia Hematologic/Lymphatic: No: Easy Bruising Physical Exam Narrative General: The patient is a well-developed well-nourished female in no acute distress Head and Neck exam: Head is normocephalic atraumatic. Eyes: EOMI, pupils are equal round and reactive to light. No nystagmus noted. Nose: Midline septum with pink mucous membranes Mouth: Dentition unremarkable. Moist mucus membranes. Posterior oropharynx is not erythematous. No tonsillar hypertrophy. Uvula midline. Airway patent. Neck: No palpable lymphadenopathy. No nuchal rigidity. No thyromegaly. Cardiovascular: Regular rate and rhythm without murmurs, gallops, or rubs. No pulse deficit to the extremities and simultaneous auscultation and palpation of her radial artery. Lungs: Clear to auscultation bilaterally. No wheezes, rhonchi, or rales. Abdomen: Soft, with reported tenderness on palpation of the suprapubic and bilateral lower quadrants of the abdomen. No tenderness on palpation specifically over McBurney's point. Normal bowel sounds are audible. No guarding, rebound, or rigidity. Negative Otero sign. Extremities: No clubbing, cyanosis, or edema. 2+ pulses in all 4 extremities. No calf tenderness on palpation. Back: No spinous process tenderness to palpation. The patient reports having left CVA tenderness on palpation. Neurologic Exam: Grossly nonfocal. Skin Exam: No rash noted. Intact skin that is warm and dry. Data Data Last Documented VS Vital Signs Date Time Temp Pulse Resp B/P (MAP) Pulse Ox O2 Delivery O2 Flow Rate FiO2 05/16/17 23:34 05/16/17 23:25 70 18 71 18 70 18 05/16/17 23:08 98 Room Air 05/16/17 22:23 99.6 Orders Orders Complete Blood Count With Diff (05/16/17 23:06) Comprehensive Metabolic Panel (05/16/17 23:06) Lipase (05/16/17 23:06) Urinalysis - C+S If Indicated (05/16/17 23:06) Magnesium (Mg) (05/16/17 23:06) Iv Access Insert/Monitor (05/16/17 23:06) Ecg Monitoring (05/16/17 23:06) Oximetry (05/16/17 23:06) Valproic Acid (Depakene) (05/16/17 23:17) Orthostatic Vital Signs (05/16/17 23:19) Sodium Chlorid 0.9% 500 Ml Inj (Ns 500 M (05/16/17 23:30) Labs Laboratory Tests Test 05/16/17 23:07 White Blood Count 8.6 TH/MM3 Red Blood Count 3.89 MIL/MM3 Hemoglobin 12.6 GM/DL Hematocrit 37.3 % Mean Corpuscular Volume 95.8 FL Mean Corpuscular Hemoglobin 32.3 PG Mean Corpuscular Hemoglobin Concent 33.8 % Red Cell Distribution Width 14.1 % Platelet Count 233 TH/MM3 Mean Platelet Volume 9.3 FL Neutrophils (%) (Auto) 51.0 % Lymphocytes (%) (Auto) 35.8 % Monocytes (%) (Auto) 8.8 % Eosinophils (%) (Auto) 3.3 % Basophils (%) (Auto) 1.1 % Neutrophils # (Auto) 4.4 TH/MM3 Lymphocytes # (Auto) 3.1 TH/MM3 Monocytes # (Auto) 0.8 TH/MM3 Eosinophils # (Auto) 0.3 TH/MM3 Basophils # (Auto) 0.1 TH/MM3 CBC Comment DIFF FINAL Differential Comment MDM Medical Decision Making Medical Screen Exam Complete: Yes Emergency Medical Condition: Yes Medical Record Reviewed: Yes Differential Diagnosis Depakote toxicity, versus orthostasis, versus, versus cystitis, versus pyelonephritis, versus cystocele, versus rectocele Narrative Course During the course of the patients emergency department visit, the patients history, examination, and differential diagnosis were reviewed with the patient. The patient had IV access obtained and blood work sent for analysis. The patient's was on a director of cardiac rehabilitation with oximetry and blood pressure monitoring. Orthostatic vital signs were ordered. The patient was initially provided normal saline a 500 mL bolus. Shortly after I left the room, the patient reported that she does not want to stay any longer. She reports that she does not feel comfortable. When I asked her to clarify, she reports that she would rather sit out in the waiting room while she awaits her studies. I explained that she does have an IV in place and IV fluids will need to be administered and additional medications may need to be provided after her laboratory studies are completed. The patient refused to continue to be evaluated in the emergency department room. The patient reports that she would like to leave AGAINST MEDICAL ADVICE prior to the completion of her workup. AMA: The risks of leaving against medical advice without further evaluation treatment were discussed with the patient. These risks include cardiac dysfunction, cardiac dysrhythmia, possible heart attack, possible stroke or . The patient indicated understanding of these risks and appeared to have the capacity to make this decision. Diagnosis Primary Impression: Chronic abdominal pain Additional Impression: Left against medical advice Referrals: Primary Care Physician 2 days Patient Instructions: Abdominal Pain (ED), General Instructions Med/Other Pt SpecificInfo: No Change to Meds Disposition: 07 AGAINST MEDICAL ADVICE Condition: Katiana Barraza MD May 16, 2017 23:02
[2017-05-16 23:08] VITALS: RESP 16; O2SAT 98
[2017-05-16 23:25] VITALS: BP_SYST 130; BP_SYST 158; BP_SYST 174; BP_DIAS 68; BP_DIAS 70; BP_DIAS 71; RESP 18
[2017-05-16] MEDS ORDERED: SODIUM CHLORID 0.9% 500 ML INJ 500 ML IV ONE (23:30)
[2017-05-16 23:35] LABS: AUTOMATED NEUTROPHIL # 4.4 TH/MM3 (1.8-7.7); BASOPHIL # 0.1 TH/MM3 (0-0.2); BASOPHIL % 1.1 % (0.0-2.0); EOSINOPHIL # 0.3 TH/MM3 (0-0.4); EOSINOPHIL % 3.3 % (0.0-4.0); HEMATOCRIT 37.3 % (35.0-46.0); HEMO FLAGS DIFF FINAL; LYMPH % 35.8 % (9.0-44.0); LYMPHOCYTE # 3.1 TH/MM3 (1.0-4.8); MEAN CELL VOLUME 95.8 FL (80.0-100.0); MEAN CORPUSCULAR HEMOGLOBIN 32.3 PG (27.0-34.0); MEAN CORPUSCULAR HGB CONC 33.8 % (32.0-36.0); MONO % 8.8 % (0.0-8.0); PLATELET COUNT 233 TH/MM3 (150-450); RED BLOOD COUNT 3.89 MIL/MM3 (4.00-5.30); RED CELL DISTRIBUTION WIDTH 14.1 % (11.6-17.2); WHITE BLOOD COUNT 8.6 TH/MM3 (4.0-11.0)
[2017-05-16 23:36] LABS: BACTERIA, URINE RARE /hpf; BLOOD, URINE SMALL (NEG); COMMENT (UR) CULTURE INDICATED; CULTURE IF INDICATED CULTURE INDICATED; GLUCOSE,URINE NEG (NEG); KETONE, URINE NEG (NEG); NITRITE,URINE NEG (NEG); SQUAMOUS EPITHELIAL CELL URINE <1 /hpf (0-5); URINE COLOR COLORLESS (YELLW/STRAW)
[2017-05-17 00:03] LABS: ALKALINE PHOSPHATASE 113 U/L (45-117); TOTAL BILIRUBIN ADULT 0.2 MG/DL (0.2-1.0)
[2017-05-17 00:12] LABS: ALT (GPT) 16 U/L (10-53); ANION GAP 5 MEQ/L (5-15); AST (GOT) 18 U/L (15-37); BICARBONATE 26.1 MEQ/L (21.0-32.0); BLOOD UREA NITROGEN 30 MG/DL (7-18); CHLORIDE 109 MEQ/L (98-107); GLOMERULAR FILTRATION RATE 24 ML/MIN (>89); MAGNESIUM 2.1 MG/DL (1.5-2.5); SODIUM (NA) 140 MEQ/L (136-145)
[2017-05-17 00:19] LABS: POTASSIUM 4.7 MEQ/L (3.5-5.1)
== END 2017-05-16 23:35 | disposition left against medical advice (07) ==
LOC: NEPC 22:15
DX: R10.9 Unspecified abdominal pain (principal); G89.29 Other chronic pain; R42 Dizziness and giddiness; M79.1 Myalgia; J45.909 Unspecified asthma, uncomplicated; F31.9 Bipolar disorder, unspecified; I10 Essential (primary) hypertension; F41.9 Anxiety disorder, unspecified; Z79.899 Other long term (current) drug therapy
CPT/HCPCS: 80053; 80164; 81001; 83690; 83735; 85025; 87086; 99284

== ENCOUNTER 2017-06-24 22:18 | Emergency (ER) | payer OTHER ==
[~2017-06-24] VITALS: Ht 154.9 cm; Wt 67.0 kg
[~2017-06-24 22:18] MED LIST changes: +ALEN1TAB48 PO; -ALEN5TAB PO
[2017-06-24 22:49] VITALS: BP 135/69; PULSE 67; RESP 16; TEMP 98; O2SAT 98
--- NOTE | 2017-06-24 23:50 | PD ---
HPI Chief Complaint: Abdominal Pain Time Seen by Provider: 23:35 Travel History International Travel<30 days: No Contact w/Intl Traveler<30days: No Traveled to known affect area: No History of Present Illness HPI PATIADELA IS HERE C/O ABD PAIN, GENERALIZED, CRAMPY , ONGOING FOR YEARS, TODAY'S REALLY NOT MUCH DIFFERENT THAN BEFORE, PATIENT STATED THAT SHE HAS NOT SEEN A MARKETING COMMUNICATIONS ASSISTANT DESPITE THE FACT THAT SHE HAS BEEN REFERRED MULTIPLE TIMES. PFSH Past Medical History Hx Anticoagulant Therapy: Yes (Aspirin) Asthma: Yes Bipolar Disorder: Yes Anxiety: Yes Heart Rhythm Problems: No Cancer: Yes (hx of thyroid ca) Cardiac Catheterization: No Cardiovascular Problems: Yes (HTN) High Cholesterol: No Chemotherapy: No Congestive Heart Failure: No Cerebrovascular Accident: No Diabetes: No Diminished Hearing: No Heparin Induced Thrombocytopen: No Hypertension: Yes Respiratory: Yes (ASTHMA, BRONCHITIS) Immunizations Current: Yes Seizures: Yes Menopausal: Yes : 1 Para: 2 : 1 Past Surgical History Section: Yes Coronary Artery Bypass Graft: No Hysterectomy: No Other Surgery: Yes (THROAT CANCER) Family History Family Hypercholesterolemia: Yes Social History Alcohol Use: No Tobacco Use: Yes (1PPD) Substance Use: No Allergies-Medications (Allergen,Severity, Reaction): Uncoded Allergies: BP MED (Allergy, Severe, 04/13/15) Reported Meds & Prescriptions Reported Meds & Active Scripts Active Reported Alendronate (Alendronate Sodium) 70 Mg Tab 70 Mg PO Q7D Lorazepam 1 Mg Tab 1 Mg PO HS PRN Simvastatin 20 Mg Tab 20 Mg PO DAILY Depakote DR (Divalproex Sodium) 500 Mg Tabdr 500 Mg PO TID Fluoxetine (Fluoxetine HCl) 40 Mg Cap 40 Cap PO DAILY Aspirin 81 Mg Chew 800 Mg CHEW DAILY Review of Systems Except as stated in HPI: all other systems reviewed are Neg Gastrointestinal: Positive: Abdominal Pain Physical Exam Narrative GENERAL: SKIN: Warm and dry. HEAD: Atraumatic. Normocephalic. EYES: Pupils equal and round. No scleral icterus. No injection or drainage. ENT: No nasal bleeding or discharge. Mucous membranes pink and moist. NECK: Trachea midline. No JVD. CARDIOVASCULAR: Regular rate and rhythm. RESPIRATORY: No accessory muscle use. Clear to auscultation. Breath sounds equal bilaterally. GASTROINTESTINAL: Abdomen soft, non-tender, nondistended. MUSCULOSKELETAL: Extremities without clubbing, cyanosis, or edema. No obvious deformities. NEUROLOGICAL: Awake and alert. No obvious cranial nerve deficits. Motor grossly within normal limits. Five out of 5 muscle strength in the arms and legs. Normal speech. PSYCHIATRIC: Appropriate mood and affect; insight and judgment normal. Data Data Last Documented VS Vital Signs Date Time Temp Pulse Resp B/P (MAP) Pulse Ox O2 Delivery O2 Flow Rate FiO2 06/24/17 22:49 98.0 67 16 135/69 (91) [address] Abd/Pel W/O Iv Contrast (06/24/17 23:35) MDM Medical Decision Making Medical Screen Exam Complete: Yes Emergency Medical Condition: Yes Medical Record Reviewed: Yes Differential Diagnosis SBO V ILEUS V PERF V COLITIS V DIVERTIC V PANCREATITIS Narrative Course JUST BEFORE I COULD GET TO PATIENT'S ROOM TO DISCUSS HER FINDINGS PATIENT SAID SHE COULD NOT WAIT ANY LONGER AND SIGNED OUT AMA, SO UNABLE TO TREAT PATIENT WITH ABX SCRIPT SINCE SHE LEFT WHILE I WAS SEEING ANOTHER PATIENT. Diagnosis Primary Impression: UTI Additional Impressions: Nephrolithiasis AMA Patient Instructions: General Instructions, Urinary Tract Infection in Women ( ED) Disposition: 07 AGAINST MEDICAL ADVICE Condition: Stable Curly Mcclendon MD Jun 24, 2017 23:50
--- NOTE | 2017-06-25 00:26 | RADRPT ---
EXAM DATE/TIME: 06/24/2017 23:51 [facility] COMPARISON: CT ABDOMEN & PELVIS W CONTRAST, October 07, 2016, 3:19. INDICATIONS : Diffuse abdominal pain with nausea. ORAL CONTRAST: No oral contrast ingested. RADIATION DOSE: 8.83 CTDIvol (mGy) MEDICAL HISTORY : Hypertension. Thyroid cancer. SURGICAL HISTORY : section. ENCOUNTER: Initial ACUITY: >1 yr PAIN SCALE: 4/10 LOCATION: Bilateral abdomen TECHNIQUE: Volumetric scanning of the abdomen and pelvis was performed. Using automated exposure control and ad justment of the mA and/or kV according to patient size, radiation dose was kept as low as reasonably achievable to obtain optimal diagnostic quality images. DICOM format image data is available electro nically for review and comparison. FINDINGS: There is a 5 mm nodule in the right middle lobe with a second smaller nodule measuring 2 mm. No pleur al effusions are identified. The liver and spleen are normal in size and no focal defects are identif ied. The gallbladder and pancreas are unremarkable. No intrahepatic or extrahepatic ductal dilatation is seen. The adrenal glands are unremarkable. The right kidney is unremarkable. There are multiple s tones within the left kidney without hydronephrosis the largest measuring 2 mm. There is a small area of hyperdensity in the posterior aspect of left kidney as well measuring no more than 3 mm which may reflect a hyperdense cyst There is diffuse bladder wall thickening characteristic of cystitis. No free fluid is identified. The re is a moderate amount of fecal material throughout the colon. CONCLUSION: 1. Bladder wall thickening characteristic of cystitis 2. Nonobstructing left renal stones 3. 5 mm nodule right lung base. Followup CT scan in 6 months is recommended. John Ruiz MD on June 25, 2017 at 0:21 Board Certified Radiologist. This report was verified electronically.
== END 2017-06-25 01:15 | disposition left against medical advice (07) ==
LOC: NEPC 22:18
DX: N30.90 Cystitis, unspecified without hematuria (principal); N20.0 Calculus of kidney
CPT/HCPCS: 74176; 99284

== ENCOUNTER 2017-07-14 08:06 | Emergency (ER) | payer OTHER ==
[~2017-07-14] VITALS: Ht 154.9 cm; Wt 65.0 kg
[~2017-07-14 08:06] MED LIST changes: +ASPI-516 CHEW; -ASPI81CH CHEW
[2017-07-14 08:12] VITALS: PULSE 81; RESP 18; TEMP 98.6; O2SAT 97
[2017-07-14 08:16] VITALS: BP 159/72; PULSE 71; RESP 18; TEMP 98.6; O2SAT 97
--- NOTE | 2017-07-14 09:29 | PD ---
HPI Chief Complaint: Headache Time Seen by Provider: 08:27 Travel History International Travel<30 days: No Contact w/Intl Traveler<30days: No Traveled to known affect area: No History of Present Illness HPI The patient was seen and examined in the presence of the nurse. This patient complains of headache. She has a throbbing left-sided headache. Duration one day. She hasn't tried anything for it. No fever. No thunderclap onset. She says that she hit her head 3 weeks ago but didn't have headache until yesterday. Denies blood thinners. PFSH Past Medical History Hx Anticoagulant Therapy: Yes (ASPIRIN ) Asthma: Yes Bipolar Disorder: Yes Anxiety: Yes Heart Rhythm Problems: No Cancer: Yes (hx of thyroid ca) Cardiac Catheterization: No Cardiovascular Problems: Yes (HTN) High Cholesterol: No Chemotherapy: No Congestive Heart Failure: No Cerebrovascular Accident: No Diabetes: No Diminished Hearing: No Heparin Induced Thrombocytopen: No Hypertension: Yes Respiratory: Yes (ASTHMA, BRONCHITIS) Immunizations Current: Yes Seizures: Yes Tetanus Vaccination: > 5 Years Influenza Vaccination: Yes ?: Not Menopausal: Yes : 2 Para: 1 : 1 Past Surgical History Section: Yes Coronary Artery Bypass Graft: No Hysterectomy: No Other Surgery: Yes (THROAT CANCER/nose sx) Family History Family Myocardial Infarction: Yes Family Hypercholesterolemia: Yes Social History Alcohol Use: No Tobacco Use: Yes (1PPD) Substance Use: No Allergies-Medications (Allergen,Severity, Reaction): Uncoded Allergies: BP MED (Allergy, Severe, 04/13/15) Reported Meds & Prescriptions Reported Meds & Active Scripts Active Reported Alendronate (Alendronate Sodium) 70 Mg Tab 70 Mg PO Q7D Lorazepam 1 Mg Tab 1 Mg PO HS PRN Simvastatin 20 Mg Tab 20 Mg PO DAILY Depakote DR (Divalproex Sodium) 500 Mg Tabdr 500 Mg PO TID Fluoxetine (Fluoxetine HCl) 40 Mg Cap 40 Cap PO DAILY Aspirin 81 Mg Chew 800 Mg CHEW DAILY Review of Systems General / Constitutional: No: Fever HENT: Positive: Headaches Cardiovascular: No: Chest Pain or Discomfort Respiratory: No: Cough Gastrointestinal: No: Vomiting Physical Exam Narrative NEUROLOGICAL: Awake and alert. Pupils are equal round and reactive. Motor and sensory grossly within normal limits. Five out of 5 muscle strength in all muscle groups. Normal speech. NECK: Symmetrical appearance, midline trachea. No mass or crepitus. Thyroid without enlargement, tenderness, or mass. SKIN: Focused skin assessment reveals no rash or ulcers. Skin is warm and dry. Palpation shows no induration or nodules. Scalp nontender without lesions Data Data Last Documented VS Vital Signs Date Time Temp Pulse Resp B/P (MAP) Pulse Ox O2 Delivery O2 Flow Rate FiO2 07/14/17 08:16 69 18 97 Room Air 07/14/17 08:16 98.6 159/72 (101) MDM Medical Decision Making Medical Screen Exam Complete: Yes Emergency Medical Condition: Yes Medical Record Reviewed: Yes Differential Diagnosis Differential diagnosis includes migraine, tension headache, cluster headache, meningitis. Narrative Course I have reviewed the patient's electronic medical record. Patient is a frequent visitor to the ER for chronic abdominal pain Patient looks clinically well. She is walking around and chatting with staff. She doesn't look to be in distress or pain. I gave her dose of Tylenol She is neurologically intact I don't feel she needs emergent imaging Recommend primary care follow-up Diagnosis Primary Impression: Headache Qualified Codes: R51 - Headache Additional Instructions: The patient was advised to follow up with their physician and return if they worsen. Med/Other Pt SpecificInfo: Other Disposition: 01 DISCHARGE HOME Condition: Stable Carlos Avelar MD Jul 14, 2017 09:29
[2017-07-14] MEDS ORDERED: ACETAMINOPHEN 500 MG CPLT PO ONE (09:30)
== END 2017-07-14 10:31 | disposition home or self-care (01) ==
LOC: NEPE 08:06
DX: R51 Headache (principal); I10 Essential (primary) hypertension; J45.909 Unspecified asthma, uncomplicated; Z79.82 Long term (current) use of aspirin
CPT/HCPCS: 99283

== ENCOUNTER 2017-09-22 01:27 | Emergency (ER) | payer OTHER ==
[~2017-09-22] VITALS: Ht 154.9 cm; Wt 73.0 kg
[2017-09-22 01:30] VITALS: BP 139/66; PULSE 70; RESP 16; TEMP 98.5; O2SAT 98
[2017-09-22 02:34] LABS: AUTOMATED NEUTROPHIL # 6.5 TH/MM3 (1.8-7.7); BASOPHIL # 0.2 TH/MM3 (0-0.2); EOSINOPHIL # 0.2 TH/MM3 (0-0.4); EOSINOPHIL % 2.3 % (0.0-4.0); HEMATOCRIT 35.8 % (35.0-46.0); HEMOGLOBIN 11.6 GM/DL (11.6-15.3); LYMPH % 27.3 % (9.0-44.0); LYMPHOCYTE # 2.9 TH/MM3 (1.0-4.8); MEAN CELL VOLUME 95.7 FL (80.0-100.0); MEAN CORPUSCULAR HEMOGLOBIN 30.9 PG (27.0-34.0); MEAN CORPUSCULAR HGB CONC 32.3 % (32.0-36.0); MEAN PLATELET VOLUME 8.5 FL (7.0-11.0); MONOCYTE # 0.7 TH/MM3 (0-0.9); NEUT % 61.4 % (16.0-70.0); PLATELET COUNT 213 TH/MM3 (150-450); RED BLOOD COUNT 3.74 MIL/MM3 (4.00-5.30); RED CELL DISTRIBUTION WIDTH 13.1 % (11.6-17.2); WHITE BLOOD COUNT 10.5 TH/MM3 (4.0-11.0)
[2017-09-22 02:43] LABS: CHLORIDE 108 MEQ/L (98-107); SODIUM (NA) 138 MEQ/L (136-145)
[2017-09-22 02:46] LABS: CALCIUM 8.3 MG/DL (8.5-10.1)
[2017-09-22 02:47] LABS: ALBUMIN 2.6 GM/DL (3.4-5.0); BICARBONATE 24.1 MEQ/L (21.0-32.0); BLOOD UREA NITROGEN 34 MG/DL (7-18); GLUCOSE,RANDOM 92 MG/DL (74-106); LIPASE 220 U/L (73-393)
[2017-09-22 02:50] LABS: ALT (GPT) 12 U/L (10-53); AST (GOT) 10 U/L (15-37); GLOMERULAR FILTRATION RATE 38 ML/MIN (>89)
[2017-09-22 02:51] LABS: TOTAL BILIRUBIN ADULT 0.2 MG/DL (0.2-1.0); TOTAL PROTEIN 6.3 GM/DL (6.4-8.2)
[2017-09-22 02:53] LABS: ALKALINE PHOSPHATASE 69 U/L (45-117)
--- NOTE | 2017-09-22 03:21 | PD ---
HPI Chief Complaint: Abdominal Pain Time Seen by Provider: 03:10 Travel History International Travel<30 days: No Contact w/Intl Traveler<30days: No Traveled to known affect area: No History of Present Illness HPI The patient is a 62-year-old female that has chronic lower abdominal pain. This latest episode she has had it for 3 weeks but decided to call the ambulance [facility] to get it checked again. She was here in September and June of this year and both CAT scans were normal except for bladder thickening from cystitis. She states she has nausea without vomiting. She denies any diarrhea. She denies any fever. She is from [place] originally. She still has her gallbladder and appendix. She apparently was worked up for this in [place] and they found nothing up there either. PFSH Past Medical History Hx Anticoagulant Therapy: Yes (ASPIRIN ) Asthma: Yes Bipolar Disorder: Yes Anxiety: Yes Heart Rhythm Problems: No Cancer: Yes (hx of thyroid ca) Cardiac Catheterization: No Cardiovascular Problems: Yes (HTN) High Cholesterol: No Chemotherapy: No Congestive Heart Failure: No Cerebrovascular Accident: No Diabetes: No Diminished Hearing: No Heparin Induced Thrombocytopen: No Hypertension: Yes Respiratory: Yes (ASTHMA, BRONCHITIS) Immunizations Current: Yes Seizures: Yes ?: Not Menopausal: Yes : 2 Para: 1 : 1 Past Surgical History Section: Yes Coronary Artery Bypass Graft: No Hysterectomy: No Other Surgery: Yes (THROAT CANCER/nose sx) Family History Family Myocardial Infarction: Yes Family Hypercholesterolemia: Yes Social History Alcohol Use: No Tobacco Use: Yes (1PPD) Substance Use: No Allergies-Medications (Allergen,Severity, Reaction): Uncoded Allergies: BP MED (Allergy, Severe, 04/13/15) Reported Meds & Prescriptions Reported Meds & Active Scripts Active Reported Alendronate (Alendronate Sodium) 70 Mg Tab 70 Mg PO Q7D Lorazepam 1 Mg Tab 1 Mg PO HS PRN Simvastatin 20 Mg Tab 20 Mg PO DAILY Depakote DR (Divalproex Sodium) 500 Mg Tabdr 500 Mg PO TID Fluoxetine (Fluoxetine HCl) 40 Mg Cap 40 Cap PO DAILY Aspirin 81 Mg Chew 800 Mg CHEW DAILY Review of Systems Except as stated in HPI: all other systems reviewed are Neg Physical Exam Narrative GENERAL: The patient is alert, oriented 3 and slight apparent distress with her abdominal discomfort. Her vital signs are normal. SKIN: Focused skin assessment warm/dry. HEAD: Atraumatic. Normocephalic. EYES: Pupils equal and round. No scleral icterus. No injection or drainage. ENT: No nasal bleeding or discharge. Mucous membranes pink and moist. NECK: Trachea midline. No JVD. CARDIOVASCULAR: Regular rate and rhythm. No murmur appreciated. RESPIRATORY: No accessory muscle use. Clear to auscultation. Breath sounds equal bilaterally. GASTROINTESTINAL: Abdomen soft, with slight tenderness to direct palpation in the bilateral lower quadrants, nondistended. Hepatic and splenic margins not palpable. No guarding or rebound is present. MUSCULOSKELETAL: No obvious deformities. No clubbing. No cyanosis. No edema. NEUROLOGICAL: Awake and alert. No obvious cranial nerve deficits. Motor grossly within normal limits. Normal speech. PSYCHIATRIC: Appropriate mood and affect; insight and judgment normal. Data Data Last Documented VS Vital Signs Date Time Temp Pulse Resp B/P (MAP) Pulse Ox O2 Delivery O2 Flow Rate FiO2 09/22/17 01:30 98.5 70 16 139/66 (90) 98 Orders Orders Complete Blood Count With Diff (09/22/17 02:15) Comprehensive Metabolic Panel (09/22/17 02:15) Lipase (09/22/17 02:15) Sodium Chlor 0.9% 1000 Ml Inj (Ns 1000 M (09/22/17 03:30) Urinalysis - C+S If Indicated (09/22/17 03:23) Ct Abd/Pel W Iv Contrast(Rout) (09/22/17 03:55) Iodixanol 320 Inj (Rad Ct) (Visipaque 32 (09/22/17 04:10) Labs Laboratory Tests Test 09/22/17 02:10 09/22/17 03:30 White Blood Count 10.5 TH/MM3 Red Blood Count 3.74 MIL/MM3 Hemoglobin 11.6 GM/DL Hematocrit 35.8 % Mean Corpuscular Volume 95.7 FL Mean Corpuscular Hemoglobin 30.9 PG Mean Corpuscular Hemoglobin Concent 32.3 % Red Cell Distribution Width 13.1 % Platelet Count 213 TH/MM3 Mean Platelet Volume 8.5 FL Neutrophils (%) (Auto) 61.4 % Lymphocytes (%) (Auto) 27.3 % Monocytes (%) (Auto) 7.0 % Eosinophils (%) (Auto) 2.3 % Basophils (%) (Auto) 2.0 % Neutrophils # (Auto) 6.5 TH/MM3 Lymphocytes # (Auto) 2.9 TH/MM3 Monocytes # (Auto) 0.7 TH/MM3 Eosinophils # (Auto) 0.2 TH/MM3 Basophils # (Auto) 0.2 TH/MM3 CBC Comment DIFF FINAL Differential Comment Blood Urea Nitrogen 34 MG/DL Creatinine 1.40 MG/DL Random Glucose 92 MG/DL Total Protein 6.3 GM/DL Albumin 2.6 GM/DL Calcium Level 8.3 MG/DL Alkaline Phosphatase 69 U/L Aspartate Amino Transf (AST/SGOT) 10 U/L Alanine Aminotransferase (ALT/SGPT) 12 U/L Total Bilirubin 0.2 MG/DL Sodium Level 138 MEQ/L Potassium Level 4.1 MEQ/L Chloride Level 108 MEQ/L Carbon Dioxide Level 24.1 MEQ/L Anion Gap 6 MEQ/L Estimat Glomerular Filtration Rate 38 ML/MIN Lipase 220 U/L Urine Color STRAW Urine Turbidity CLEAR Urine pH 6.0 Urine Specific [place] 1.006 Urine Protein 100 mg/dL Urine Glucose (UA) NEG mg/dL Urine Ketones NEG mg/dL Urine Occult Blood NEG Urine Nitrite NEG Urine Bilirubin NEG Urine Leukocyte Esterase NEG Urine RBC 0-3 /hpf Urine WBC 0-2 /hpf Urine Squamous Epithelial Cells 0-5 /hpf Urine Bacteria NONE /hpf Microscopic Urinalysis Comment CULT NOT INDICATED MDM Medical Decision Making Medical Screen Exam Complete: Yes Emergency Medical Condition: Yes Medical Record Reviewed: Yes Interpretation(s) The complete metabolic profile shows a BUN of 34, creatinine 1.4 with total protein 6.3 and albumin 2.6. The lipase is normal. The CBC is normal. The CT abdomen/pelvis with IV contrast shows stable CT scan compared to the prior to the examinations. There is a benign-appearing bilateral renal cysts, stable chronic parenchymal changes of both kidneys and no acute pathology. The urinalysis is normal. Differential Diagnosis Abdominal pain of unknown etiology, appendicitis, colitis, cholecystitis, pancreatitis, cystitis Narrative Course The patient has chronic, recurring abdominal pain. She has been apparently seen by many doctors both here in up in [place] for this. Nothing has been found. On physical exam the abdominal discomfort appears rather minimal. The patient appears very comfortable. When I walked into her room a few minutes ago to tell her the results of the laboratory/imaging, the patient was asleep. After I woke her up she asked for a cup of coffee. Diagnosis Primary Impression: Chronic generalized abdominal pain Additional Instructions: Follow-up next week with your primary care physician as scheduled. Also, do not miss the appointment with your psychiatrist/psychologist. Your primary care physician may recommend you to see a wash barrel leader. Med/Other Pt SpecificInfo: No Change to Meds Disposition: 01 DISCHARGE HOME Condition: Stable Sean Cifuentes MD Sep 22, 2017 03:21
[2017-09-22] MEDS: SODIUM CHLOR 0.9% 1000 ML INJ 1,000 ML IV SCH (03:29)
[2017-09-22 03:37] LABS: BILIRUBIN, URINE NEG (NEG); BLOOD, URINE NEG (NEG); GLUCOSE,URINE NEG (NEG); KETONE, URINE NEG (NEG); NITRITE,URINE NEG (NEG); URINE LEUKOCYTE ESTERASE NEG (NEG)
[2017-09-22 03:43] LABS: RBC, URINE 0-3 /hpf (0-3); SQUAMOUS EPITHELIAL CELL URINE 0-5 /hpf (0-5); URINE COLOR STRAW (YELLW/STRAW); WBC, URINE 0-2 /hpf (0-5)
[2017-09-22] MEDS ORDERED: IODIXANOL 320 MG/ML 50 ML VIAL (for Rad CT) IVCONTRAST ONE (04:10)
--- NOTE | 2017-09-22 04:51 | RADRPT ---
EXAM DATE/TIME: 09/22/2017 04:14 [facility] COMPARISON: CT ABDOMEN & PELVIS W/O CONTRAST, June 24, 2017, 23:51. CT ABDOMEN & PELVIS W CONTRAST, September [id number], 3:19. INDICATIONS : Abdominal and back pain for 3 weeks. Worse tonight. IV CONTRAST: 96 cc Visipaque (iodixanol) IV ORAL CONTRAST: No oral contrast ingested. RADIATION DOSE: 9.39 CTDIvol (mGy) MEDICAL HISTORY : Hypertension. Carcinoma, esophageal. Seizures. SURGICAL HISTORY : section. ENCOUNTER: Initial ACUITY: 3 weeks PAIN SCALE: 7/10 LOCATION: abdomen TECHNIQUE: Volumetric scanning of the abdomen and pelvis was performed. Using automated exposure control and ad justment of the mA and/or kV according to patient size, radiation dose was kept as low as reasonably achievable to obtain optimal diagnostic quality images. DICOM format image data is available electro nically for review and comparison. FINDINGS: LOWER LUNGS: The visualized lower lungs are clear. LIVER: Homogeneous density without lesion. There is no dilation of the biliary tree. No calcified gallston es. SPLEEN: Normal size without lesion. PANCREAS: Within normal limits. KIDNEYS: Normal in size and shape. There is no mass, stone or hydronephrosis. There are multiple bilateral re nal cysts. The largest cyst measures 2.2 cm in the upper pole the right kidney. There is some mild ch ronic renal parenchymal changes. However compared to the prior studies is been no new or significant changes. The ureters are nondilated. ADRENAL GLANDS: Within normal limits. VASCULAR: There is no aortic aneurysm. BOWEL/MESENTERY: The stomach, small bowel, and colon demonstrate no acute abnormality. There is no free intraperitone al air or fluid. ABDOMINAL WALL: Within normal limits. RETROPERITONEUM: There is no lymphadenopathy. BLADDER: Mild stable thickening of the urinary bladder wall.. REPRODUCTIVE: Within normal limits. INGUINAL: There is no lymphadenopathy or hernia. MUSCULOSKELETAL: Within normal limits for patient age. Paired to the prior 2 examinations there has been no new or significant changes. CONCLUSION: 1. Stable CT scan of the abdomen compared to the prior 2 examinations. 2. Benign-appearing bilateral renal cysts. Stable chronic parenchymal changes of both kidneys. 3. No acute pathology. Justin Hansen MD on September 22, 2017 at 4:43 Board Certified Radiologist. This report was verified electronically.
[2017-09-22 05:33] VITALS: BP 147/72
== END 2017-09-22 05:39 | disposition home or self-care (01) ==
LOC: PHED 01:27
DX: R10.30 Lower abdominal pain, unspecified (principal); J45.909 Unspecified asthma, uncomplicated; F31.9 Bipolar disorder, unspecified; I10 Essential (primary) hypertension; F17.200 Nicotine dependence, unspecified, uncomplicated
CPT/HCPCS: 74177; 80053; 81001; 83690; 85025; 96360; 99285; J7030; Q9967

== ENCOUNTER 2017-10-10 21:14 | Emergency (ER) | payer OTHER ==
[~2017-10-10] VITALS: Ht 154.9 cm; Wt 69.0 kg
[2017-10-10 21:15] VITALS: BP 127/72; PULSE 84; RESP 16; O2SAT 97
[2017-10-10 21:25] VITALS: BP 127/72; PULSE 74; RESP 14; TEMP 98.9; O2SAT 95
[2017-10-10] MEDS ORDERED: ASPI81CH6 CHEW (21:25)
[2017-10-10] MEDS ORDERED: BP MED PO (21:25)
[2017-10-10] MEDS ORDERED: TRAM50TA PO (21:54)
--- NOTE | 2017-10-10 21:55 | PD ---
HPI Chief Complaint: Flank/Kidney Pain Time Seen by Provider: 21:38 Travel History International Travel<30 days: No Contact w/Intl Traveler<30days: No Traveled to known affect area: No History of Present Illness HPI The patient is a 62-year-old female with a history of multiple visits for abdominal pain. She states she is very worried tonight because on her last visit she said the CAT scan showed a tumor on her kidney. The CAT scan was recovered, I saw the patient at that time, and bilateral benign-appearing renal cysts were present and there was no tumor. There was no acute change on the CAT scan of the abdomen/pelvis and the CAT scan was stable as compared to previous CAT scans. The patient was worried and called the ambulance. She states her main pain is her chronic back pain which is a 7/10. Her abdominal pain is a 4-5/10. She has had this abdominal pain for years and she does have a history of cancer of the esophagus the this is one reason she is anxious and worried. She does not have any nausea or vomiting tonight. 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) Heparin Induced Thrombocytopen: No Hypertension: Yes Respiratory: Yes (ASTHMA, BRONCHITIS) Immunizations Current: Yes Seizures: Yes Tetanus Vaccination: Unknown Influenza Vaccination: No ?: Not Menopausal: Yes : 2 Para: 1 : 1 Past Surgical History Section: Yes Coronary Artery Bypass Graft: No Hysterectomy: No Other Surgery: Yes (THROAT CANCER/nose sx) Family History Family Myocardial Infarction: Yes Family Hypercholesterolemia: Yes Social History Alcohol Use: No Tobacco Use: Yes (1PPD) Substance Use: No Allergies-Medications (Allergen,Severity, Reaction): Uncoded Allergies: BP MED (Allergy, Severe, 04/13/15) Reported Meds & Prescriptions Reported Meds & Active Scripts Active Reported [Bp Med] 2.5 Mg PO BID Aspirin Low Dose (Aspirin) 81 Mg Chew 81 Mg CHEW DAILY Alendronate (Alendronate Sodium) 70 Mg Tab 70 Mg PO Q7D Lorazepam 1 Mg Tab 1 Mg PO HS PRN Simvastatin 20 Mg Tab 20 Mg PO DAILY Depakote DR (Divalproex Sodium) 500 Mg Tabdr 500 Mg PO TID Fluoxetine (Fluoxetine HCl) 40 Mg Cap 40 Cap PO DAILY Review of Systems Except as stated in HPI: all other systems reviewed are Neg Physical Exam Narrative GENERAL: Well-nourished, well-developed patient in minimal apparent distress with her low back pain and, to a lesser extent, her abdominal discomfort. SKIN: Focused skin assessment warm/dry. HEAD: Normocephalic. EYES: No scleral icterus. No injection or drainage. NECK: Supple, trachea midline. No JVD or lymphadenopathy. CARDIOVASCULAR: Regular rate and rhythm without murmurs, gallops, or rubs. RESPIRATORY: Breath sounds equal bilaterally. No accessory muscle use. GASTROINTESTINAL: Abdomen soft, minimally tender over the periumbilical area to direct palpation, nondistended. No guarding or rebound is present. MUSCULOSKELETAL: No cyanosis, or edema. BACK: Nontender without obvious deformity. No CVA tenderness. Data Data Last Documented VS Vital Signs Date Time Temp Pulse Resp B/P (MAP) Pulse Ox O2 Delivery O2 Flow Rate FiO2 10/10/17 21:36 78 18 10/10/17 21:25 98.9 127/72 (90) 95 MDM Medical Decision Making Medical Screen Exam Complete: Yes Emergency Medical Condition: Yes Medical Record Reviewed: Yes Differential Diagnosis Abdominal pain etiology undetermined, chronic abdominal pain, renal tumor, renal cysts Narrative Course The patient has mild, chronic, recurring abdominal pain. She has had this for years. Her main concern was she thought she had a tumor in the kidney but this was only benign appearing renal cysts. The patient was reassured and she will be given tramadol for the discomfort and follow up with her primary care physician. Diagnosis Primary Impression: Abdominal pain Additional Impression: Anxiety about health Additional Instructions: Follow-up with her primary care physician next week. Do not drink alcohol or drive on the tramadol. Med/Other Pt SpecificInfo: Prescription(s) given Scripts Tramadol (Tramadol) 50 Mg Tab 50 MG PO Q6H Y for PAIN, #30 TAB 0 Refills Prov: Sean Cifuentes MD 10/10/17 Disposition: 01 DISCHARGE HOME Condition: Stable Sean Cifuentes MD Oct 10, 2017 21:55
[2017-10-10 22:25] VITALS: BP 149/80
== END 2017-10-10 22:35 | disposition home or self-care (01) ==
LOC: PHED 21:14
DX: R10.9 Unspecified abdominal pain (principal); F41.9 Anxiety disorder, unspecified; M54.5 Low back pain; G89.29 Other chronic pain; I10 Essential (primary) hypertension; F17.200 Nicotine dependence, unspecified, uncomplicated
CPT/HCPCS: 99283

== ENCOUNTER 2017-11-05 19:18 | Emergency (ER) | payer OTHER ==
[~2017-11-05 19:18] MED LIST changes: -ASPI-516 CHEW; +ASPI81CH6 CHEW; +BP MED PO; +TRAM50TA PO
[2017-11-05 19:42] VITALS: BP 156/70; PULSE 81; RESP 16; TEMP 98; O2SAT 98
--- NOTE | 2017-11-05 21:42 | RADRPT ---
EXAM DATE/TIME: 11/05/2017 20:53 [facility] COMPARISON: No previous studies available for comparison. INDICATIONS : "Flu" symptoms for 2 weeks. MEDICAL HISTORY : Hypertension. Carcinoma, esophageal. Seizures SURGICAL HISTORY : section. ENCOUNTER: Initial ACUITY: 2 weeks PAIN SCORE: 4/10 LOCATION: all over FINDINGS: PA and lateral views of the chest demonstrate the lungs to be symmetrically aerated without evidence of mass, infiltrate or effusion. The cardiomediastinal contours are unremarkable. Osseous structure s are intact. CONCLUSION: 1. No active disease. Florencio Tyson MD on November 05, 2017 at 21:40 Board Certified Radiologist. This report was verified electronically.
--- NOTE | 2017-11-05 21:54 | PD ---
HPI Chief Complaint: Cold / Flu Symptoms Time Seen by Provider: 21:48 Travel History International Travel<30 days: No Contact w/Intl Traveler<30days: No Traveled to known affect area: No History of Present Illness HPI 62-year-old female here for evaluation of possible flu. The patient reports that for the last 2 weeks she has had flulike symptoms consisting of cough productive of yellowish sputum, malaise, feeling hot and cold, intermittent headaches. Currently she states she has a mild headache. She denies abdominal pain, nausea, vomiting, or diarrhea. No chest pain or dyspnea. She reports her cough has been productive of yellowish sputum. No hemoptysis. 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) Heparin Induced Thrombocytopen: No Hypertension: Yes Respiratory: Yes (COPD) Immunizations Current: Yes Seizures: Yes Menopausal: Yes : 2 Para: 1 : 1 Past Surgical History Section: Yes Coronary Artery Bypass Graft: No Hysterectomy: No Other Surgery: Yes (THROAT CANCER/nose sx) Family History Family Hypercholesterolemia: Yes Social History Alcohol Use: No Tobacco Use: Yes (1PPD) Substance Use: No Allergies-Medications (Allergen,Severity, Reaction): Uncoded Allergies: BP MED (Allergy, Severe, 04/13/15) Reported Meds & Prescriptions Reported Meds & Active Scripts Active Tramadol (Tramadol HCl) 50 Mg Tab 50 Mg PO Q6H PRN Reported [Bp Med] 2.5 Mg PO BID Aspirin Low Dose (Aspirin) 81 Mg Chew 81 Mg CHEW DAILY Alendronate (Alendronate Sodium) 70 Mg Tab 70 Mg PO Q7D Lorazepam 1 Mg Tab 1 Mg PO HS PRN Simvastatin 20 Mg Tab 20 Mg PO DAILY Depakote DR (Divalproex Sodium) 500 Mg Tabdr 500 Mg PO TID Fluoxetine (Fluoxetine HCl) 40 Mg Cap 40 Cap PO DAILY Review of Systems Except as stated in HPI: all other systems reviewed are Neg Physical Exam Narrative GENERAL: Well-developed, well-nourished, comfortable, no apparent distress. SKIN: Focused skin assessment warm/dry. No rash. HEAD: Atraumatic. Normocephalic. EYES: Pupils equal and round. No scleral icterus. No injection or drainage. ENT: No nasal bleeding or discharge. Mucous membranes pink and moist. NECK: Trachea midline. No JVD. No nuchal rigidity. CARDIOVASCULAR: Regular rate and rhythm. RESPIRATORY: No accessory muscle use. Clear to auscultation. Breath sounds equal bilaterally. GASTROINTESTINAL: Abdomen soft, non-tender, nondistended. Hepatic and splenic margins not palpable. MUSCULOSKELETAL: No obvious deformities. No clubbing. No cyanosis. No edema. NEUROLOGICAL: Awake and alert. No obvious cranial nerve deficits. Motor grossly within normal limits. Normal speech. PSYCHIATRIC: Appropriate mood and affect; insight and judgment normal. Data Data Last Documented VS Vital Signs Date Time Temp Pulse Resp B/P (MAP) Pulse Ox O2 Delivery O2 Flow Rate FiO2 11/05/17 19:42 98.0 81 16 156/70 (98) 98 Orders Orders Chest, Pa & Lat (11/05/17 ) Influenzae A/B Antigen (11/05/17 19:44) MDM Medical Decision Making Medical Screen Exam Complete: Yes Emergency Medical Condition: Yes Medical Record Reviewed: Yes Differential Diagnosis Influenza, viral illness, URI, pneumonia Narrative Course Vital signs reviewed and are within normal limits aside from slight elevated blood pressure. Chest x-ray: No active disease. Influenza is negative. The patient is overall very well-appearing. She is stable for discharge home with outpatient follow-up with a primary care physician this week. She was advised on when to return to the emergency department. She verbalizes understanding and agreement with plan. Diagnosis Primary Impression: URI (upper respiratory infection) Qualified Codes: J06.9 - Acute upper respiratory infection, unspecified Referrals: Primary Care Physician 3 days Additional Instructions: Follow-up with a primary care physician this week. Return to the emergency department for worsening symptoms or any other concerns. Disposition: 01 DISCHARGE HOME Condition: Stable David Murrell MD Nov 05, 2017 21:54
== END 2017-11-05 22:16 | disposition home or self-care (01) ==
LOC: NEPD 19:18
DX: J06.9 Acute upper respiratory infection, unspecified (principal); I10 Essential (primary) hypertension; F17.200 Nicotine dependence, unspecified, uncomplicated
CPT/HCPCS: 71046; 87804; 99284

== ENCOUNTER 2017-12-13 04:52 | Emergency (ER) | payer OTHER ==
[~2017-12-13] VITALS: Ht 157.5 cm; Wt 69.0 kg
[2017-12-13 04:57] VITALS: BP 182/76; PULSE 62; RESP 18; TEMP 97.8; O2SAT 100
[2017-12-13] MEDS ORDERED: SODIUM CHLORIDE 0.9% FLUSH 10 ML FLUSH IVF PRN (05:45)
--- NOTE | 2017-12-13 05:45 | PD ---
HPI Chief Complaint: Abdominal Pain Time Seen by Provider: 05:24 Travel History International Travel<30 days: No Contact w/Intl Traveler<30days: No Traveled to known affect area: No History of Present Illness HPI Patient is a 62-year-old female initially called 911 because she had sudden onset of abdominal pain that awoke her from sleep. She states she has a history of constipation. Her chief complaint to me is actually of generalized weakness over the past 2 weeks which is gradually worsening. Patient denies any chest pain shortness of breath nausea or vomiting. She states her belly pain has resolved. It was left-sided and only lasted for a second or 2. She denies any fevers. She states she has not followed up with her primary care physician in some time, she states she had one colonoscopy in the past and is probably due for another, she never had a mammogram before, she is a cigarette smoker. 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) Heparin Induced Thrombocytopen: No Hypertension: Yes Respiratory: Yes (COPD) Immunizations Current: Yes Seizures: Yes Menopausal: Yes : 2 Para: 1 : 1 Past Surgical History Section: Yes Coronary Artery Bypass Graft: No Hysterectomy: No Other Surgery: Yes (THROAT CANCER/nose sx) Family History Family Myocardial Infarction: Yes Family Hypercholesterolemia: Yes Social History Alcohol Use: No Tobacco Use: Yes (09/11 PPD) Substance Use: No Allergies-Medications (Allergen,Severity, Reaction): Uncoded Allergies: BP MED (Allergy, Mild, Itching, 12/13/17) PT IS UNSURE WHICH MEDICAITON IT IS THAT SHE HAD A REACTION TO Reported Meds & Prescriptions Reported Meds & Active Scripts Active Tramadol (Tramadol HCl) 50 Mg Tab 50 Mg PO Q6H PRN Reported [Bp Med] 2.5 Mg PO BID Aspirin Low Dose (Aspirin) 81 Mg Chew 81 Mg CHEW DAILY Alendronate (Alendronate Sodium) 70 Mg Tab 70 Mg PO Q7D Lorazepam 1 Mg Tab 1 Mg PO HS PRN Simvastatin 20 Mg Tab 20 Mg PO DAILY Depakote DR (Divalproex Sodium) 500 Mg Tabdr 500 Mg PO TID Fluoxetine (Fluoxetine HCl) 40 Mg Cap 40 Cap PO DAILY Review of Systems Except as stated in HPI: all other systems reviewed are Neg Physical Exam Narrative GENERAL: Well-developed, thin in no obvious distress, unkempt. On my initial evaluation she is sleeping soundly in the left lateral position. SKIN: Focused skin assessment warm/dry. HEAD: Atraumatic. Normocephalic. EYES: Pupils equal and round. No scleral icterus. No injection or drainage. ENT: No nasal bleeding or discharge. Mucous membranes pink and moist. NECK: Trachea midline. No JVD. CARDIOVASCULAR: Regular rate and rhythm. No murmur appreciated. RESPIRATORY: No accessory muscle use. Clear to auscultation. Breath sounds equal bilaterally. GASTROINTESTINAL: Abdomen soft, non-tender, nondistended. Hepatic and splenic margins not palpable. No rebound no percussive tenderness, abdomen is completely benign. MUSCULOSKELETAL: No obvious deformities. No clubbing. No cyanosis. No edema. NEUROLOGICAL: Awake and alert. No obvious cranial nerve deficits. Motor grossly within normal limits. Normal speech. PSYCHIATRIC: Appropriate mood and affect; insight and judgment normal. Data Data Last Documented VS Vital Signs Date Time Temp Pulse Resp B/P (MAP) Pulse Ox O2 Delivery O2 Flow Rate FiO2 12/13/17 07:21 67 17 159/83 (108) 100 12/13/17 05:57 Room Air 12/13/17 04:57 97.8 Orders Orders Electrocardiogram (12/13/17 05:40) Ckmb (Isoenzyme) Profile (12/13/17 05:40) Complete Blood Count With Diff (12/13/17 05:40) Comprehensive Metabolic Panel (12/13/17 05:40) Magnesium (Mg) (12/13/17 05:40) Prothrombin Time / Inr (Pt) (12/13/17 05:40) Act Partial Throm Time (Ptt) (12/13/17 05:40) Troponin I (12/13/17 05:40) Chest, Single Ap (12/13/17 05:40) Ecg Monitoring (12/13/17 05:40) Iv Access Insert/Monitor (12/13/17 05:40) Oximetry (12/13/17 05:40) Oxygen Administration (12/13/17 05:40) Sodium Chloride 0.9% Flush (Ns Flush) (12/13/17 05:45) Ed Discharge Order (12/13/17 07:14) Labs Laboratory Tests Test 12/13/17 05:45 White Blood Count 7.8 TH/MM3 Red Blood Count 3.91 MIL/MM3 Hemoglobin 12.6 GM/DL Hematocrit 37.9 % Mean Corpuscular Volume 96.8 FL Mean Corpuscular Hemoglobin 32.3 PG Mean Corpuscular Hemoglobin Concent 33.4 % Red Cell Distribution Width 13.9 % Platelet Count 232 TH/MM3 Mean Platelet Volume 9.5 FL Neutrophils (%) (Auto) 43.8 % Lymphocytes (%) (Auto) 43.7 % Monocytes (%) (Auto) 7.8 % Eosinophils (%) (Auto) 3.3 % Basophils (%) (Auto) 1.4 % Neutrophils # (Auto) 3.4 TH/MM3 Lymphocytes # (Auto) 3.4 TH/MM3 Monocytes # (Auto) 0.6 TH/MM3 Eosinophils # (Auto) 0.3 TH/MM3 Basophils # (Auto) 0.1 TH/MM3 CBC Comment DIFF FINAL Differential Comment Prothrombin Time 10.3 SEC Prothromb Time International Ratio 1.0 RATIO Activated Partial Thromboplast Time 28.2 SEC Blood Urea Nitrogen 33 MG/DL Creatinine 1.78 MG/DL Random Glucose 88 MG/DL Total Protein 7.1 GM/DL Albumin 3.0 GM/DL Calcium Level 8.9 MG/DL Magnesium Level 2.1 MG/DL Alkaline Phosphatase 82 U/L Aspartate Amino Transf (AST/SGOT) 15 U/L Alanine Aminotransferase (ALT/SGPT) 13 U/L Total Bilirubin 0.1 MG/DL Sodium Level 142 MEQ/L Potassium Level 4.3 MEQ/L Chloride Level 109 MEQ/L Carbon Dioxide Level 24.4 MEQ/L Anion Gap 9 MEQ/L Estimat Glomerular Filtration Rate 29 ML/MIN Total Creatine Kinase 70 U/L Troponin I LESS THAN 0.02 NG/ML MDM Medical Decision Making Medical Screen Exam Complete: Yes Emergency Medical Condition: Yes Differential Diagnosis Generalized weakness, abdominal colic, electrolyte abnormality, acute kidney injury, pneumonia. Narrative Course Patient room to the emergency department, basic labs and chest x-ray ordered, chest x-ray negative, CBC fairly unremarkable. Her CMP is still pending at this time the patient was discussed with Dr. Zamora at 0700 to follow-up the patient's labs reassess and disposition appropriately. Efren Padilla MD Dec 13, 2017 05:45
[2017-12-13 05:59] LABS: AUTOMATED NEUTROPHIL # 3.4 TH/MM3 (1.8-7.7); BASOPHIL # 0.1 TH/MM3 (0-0.2); BASOPHIL % 1.4 % (0.0-2.0); EOSINOPHIL # 0.3 TH/MM3 (0-0.4); EOSINOPHIL % 3.3 % (0.0-4.0); HEMATOCRIT 37.9 % (35.0-46.0); HEMOGLOBIN 12.6 GM/DL (11.6-15.3); LYMPH % 43.7 % (9.0-44.0); LYMPHOCYTE # 3.4 TH/MM3 (1.0-4.8); MEAN CELL VOLUME 96.8 FL (80.0-100.0); MEAN CORPUSCULAR HEMOGLOBIN 32.3 PG (27.0-34.0); MEAN CORPUSCULAR HGB CONC 33.4 % (32.0-36.0); MEAN PLATELET VOLUME 9.5 FL (7.0-11.0); MONO % 7.8 % (0.0-8.0); MONOCYTE # 0.6 TH/MM3 (0-0.9); NEUT % 43.8 % (16.0-70.0); PLATELET COUNT 232 TH/MM3 (150-450); RED BLOOD COUNT 3.91 MIL/MM3 (4.00-5.30); RED CELL DISTRIBUTION WIDTH 13.9 % (11.6-17.2); WHITE BLOOD COUNT 7.8 TH/MM3 (4.0-11.0)
[2017-12-13 06:09] LABS: PROTHROMBIN TIME - PATIENT 10.3 SEC (9.8-11.6)
[2017-12-13 06:29] LABS: ALT (GPT) 13 U/L (10-53)
--- NOTE | 2017-12-13 06:37 | RADRPT ---
EXAM DATE/TIME: 12/13/2017 05:53 [facility] COMPARISON: CHEST PA & LAT, November 05, 2017, 20:53. INDICATIONS : Abdominal pain. MEDICAL HISTORY : Hypertension. Carcinoma, esophageal. Seizures SURGICAL HISTORY : section. ENCOUNTER: Initial ACUITY: 1 day PAIN SCORE: 0/10 LOCATION: Bilateral chest FINDINGS: One focally clear. No pleural effusion suspected. Cardiac contours are satisfactory for projection. CONCLUSION: No acute disease. Inder Mcnair MD on December 13, 2017 at 6:34 Board Certified Radiologist. This report was verified electronically.
[2017-12-13 07:02] LABS: ALKALINE PHOSPHATASE 82 U/L (45-117); AST (GOT) 15 U/L (15-37); BICARBONATE 24.4 MEQ/L (21.0-32.0); BLOOD UREA NITROGEN 33 MG/DL (7-18); CALCIUM 8.9 MG/DL (8.5-10.1); CHLORIDE 109 MEQ/L (98-107); CREATININE 1.78 MG/DL (0.50-1.00); GLOMERULAR FILTRATION RATE 29 ML/MIN (>89); GLUCOSE,RANDOM 88 MG/DL (74-106); MAGNESIUM 2.1 MG/DL (1.5-2.5); SODIUM (NA) 142 MEQ/L (136-145); TOTAL BILIRUBIN ADULT 0.1 MG/DL (0.2-1.0); TOTAL PROTEIN 7.1 GM/DL (6.4-8.2); TROPONIN I LESS THAN 0.02 NG/ML (0.02-0.05)
--- NOTE | 2017-12-13 07:17 | PD ---
Physical Exam Narrative GENERAL: 62 y/o female in no apparent distress SKIN: Focused skin assessment warm/dry. HEAD: Atraumatic. Normocephalic. EYES: Pupils equal and round. No scleral icterus. No injection or drainage. ENT: No nasal bleeding or discharge. Mucous membranes pink and moist. NECK: Trachea midline CARDIOVASCULAR: Regular rate and rhythm. RESPIRATORY: No accessory muscle use. No increased effort MUSCULOSKELETAL: No obvious deformities. No clubbing. No cyanosis. No edema. NEUROLOGICAL: Awake and alert. No obvious cranial nerve deficits. Motor grossly within normal limits. Normal speech. Data Data Last Documented VS Vital Signs Date Time Temp Pulse Resp B/P (MAP) Pulse Ox O2 Delivery O2 Flow Rate FiO2 12/13/17 05:57 100 Room Air 12/13/17 04:57 97.8 62 18 182/76 (111) Orders Orders Electrocardiogram (12/13/17 05:40) Ckmb (Isoenzyme) Profile (12/13/17 05:40) Complete Blood Count With Diff (12/13/17 05:40) Comprehensive Metabolic Panel (12/13/17 05:40) Magnesium (Mg) (12/13/17 05:40) Prothrombin Time / Inr (Pt) (12/13/17 05:40) Act Partial Throm Time (Ptt) (12/13/17 05:40) Troponin I (12/13/17 05:40) Chest, Single Ap (12/13/17 05:40) Ecg Monitoring (12/13/17 05:40) Iv Access Insert/Monitor (12/13/17 05:40) Oximetry (12/13/17 05:40) Oxygen Administration (12/13/17 05:40) Sodium Chloride 0.9% Flush (Ns Flush) (12/13/17 05:45) Ed Discharge Order (12/13/17 07:14) Labs Laboratory Tests Test 12/13/17 05:45 White Blood Count 7.8 TH/MM3 Red Blood Count 3.91 MIL/MM3 Hemoglobin 12.6 GM/DL Hematocrit 37.9 % Mean Corpuscular Volume 96.8 FL Mean Corpuscular Hemoglobin 32.3 PG Mean Corpuscular Hemoglobin Concent 33.4 % Red Cell Distribution Width 13.9 % Platelet Count 232 TH/MM3 Mean Platelet Volume 9.5 FL Neutrophils (%) (Auto) 43.8 % Lymphocytes (%) (Auto) 43.7 % Monocytes (%) (Auto) 7.8 % Eosinophils (%) (Auto) 3.3 % Basophils (%) (Auto) 1.4 % Neutrophils # (Auto) 3.4 TH/MM3 Lymphocytes # (Auto) 3.4 TH/MM3 Monocytes # (Auto) 0.6 TH/MM3 Eosinophils # (Auto) 0.3 TH/MM3 Basophils # (Auto) 0.1 TH/MM3 CBC Comment DIFF FINAL Differential Comment Prothrombin Time 10.3 SEC Prothromb Time International Ratio 1.0 RATIO Activated Partial Thromboplast Time 28.2 SEC Blood Urea Nitrogen 33 MG/DL Creatinine 1.78 MG/DL Random Glucose 88 MG/DL Total Protein 7.1 GM/DL Albumin 3.0 GM/DL Calcium Level 8.9 MG/DL Magnesium Level 2.1 MG/DL Alkaline Phosphatase 82 U/L Aspartate Amino Transf (AST/SGOT) 15 U/L Alanine Aminotransferase (ALT/SGPT) 13 U/L Total Bilirubin 0.1 MG/DL Sodium Level 142 MEQ/L Potassium Level 4.3 MEQ/L Chloride Level 109 MEQ/L Carbon Dioxide Level 24.4 MEQ/L Anion Gap 9 MEQ/L Estimat Glomerular Filtration Rate 29 ML/MIN Total Creatine Kinase 70 U/L Troponin I LESS THAN 0.02 NG/ML MDM Supervised Visit with ANGELITO: No Interpretation(s) CBC & BMP Diagram 12/13/17 05:45 Total Protein 7.1, Albumin 3.0 L, Calcium Level 8.9, Magnesium Level 2.1, Alkaline Phosphatase 82, Aspartate Amino Transf (AST/SGOT) 15, Alanine Aminotransferase (ALT/SGPT) 13, Total Bilirubin 0.1 L Narrative Course Signed over to me to follow chemistries and if normal to discharge. I went in to talk with patient and she was in the hallway demanding to go. Her chemistries had just resulted and show stable renal insufficiency. She is not wanting any other testing. She denies any complaints other than generalized weakness and states she just wants to get out of here and get coffee. Given return instructions. Diagnosis Primary Impression: General weakness Additional Impression: Renal insufficiency Patient Instructions: General Instructions Additional Instruction: return as needed, follow with primary this week, tylenol as needed Med/Other Pt SpecificInfo: No Change to Meds Disposition: 01 DISCHARGE HOME Condition: Stable Sherine Ty MD Dec 13, 2017 07:17
[2017-12-13 07:21] VITALS: BP 159/83
--- NOTE | 2017-12-13 13:58 | EKG ---
Date Performed: 12/13/2017 Time Performed: 06:31:08 PTAGE: 62 years EKG: Sinus rhythm NORMAL ECG Since the PREVIOUS TRACING , no significant change noted PREVIOUS TRACIN02/03/2017 21.33 DOCTOR: Trinidad Oconnor Interpretating Date/Time 12/13/2017 13:57:25
== END 2017-12-13 07:38 | disposition home or self-care (01) ==
LOC: NEPE 04:52
DX: R53.1 Weakness (principal); N28.9 Disorder of kidney and ureter, unspecified; F41.9 Anxiety disorder, unspecified; F31.9 Bipolar disorder, unspecified; I10 Essential (primary) hypertension; J44.9 Chronic obstructive pulmonary disease, unspecified; F17.210 Nicotine dependence, cigarettes, uncomplicated; Z85.850 Personal history of malignant neoplasm of thyroid
CPT/HCPCS: 71045; 80053; 82550; 83735; 84484; 85025; 85610; 85730; 93005; 99285

== ENCOUNTER 2017-12-15 19:18 | Emergency (ER) | payer OTHER | END 2017-12-15 21:18 | disposition left against medical advice (07) | LOC: NED 19:18 | DX: Z00.00 Encounter for general adult medical examination without abnormal findings (principal); Z53.21 Procedure and treatment not carried out due to patient leaving prior to being seen by health care provider | CPT/HCPCS: 99281 ==

== ENCOUNTER 2018-02-16 20:54 | Emergency (ER) | payer OTHER ==
[~2018-02-16] VITALS: Ht 160 cm; Wt 72.0 kg
[2018-02-16 21:00] VITALS: BP 147/66; PULSE 78; RESP 18; TEMP 97.8; O2SAT 98
== END 2018-02-16 22:15 | disposition left against medical advice (07) ==
LOC: PHEFT 20:54
DX: M79.604 Pain in right leg (principal); Z53.21 Procedure and treatment not carried out due to patient leaving prior to being seen by health care provider
CPT/HCPCS: 99281

== ENCOUNTER 2018-03-02 00:05 | Emergency (ER) | payer OTHER ==
[~2018-03-02] VITALS: Ht 154.9 cm; Wt 67.0 kg
[~2018-03-02 00:05] MED LIST changes: -TRAM50TA PO
[2018-03-02 00:22] VITALS: BP 195/86; PULSE 66; RESP 16; TEMP 97.6; O2SAT 99
--- NOTE | 2018-03-02 01:30 | PD ---
HPI Chief Complaint: Pain: Acute or Chronic Time Seen by Provider: 01:22 Travel History International Travel<30 days: No Contact w/Intl Traveler<30days: No Traveled to known affect area: No History of Present Illness HPI 62-year-old female presents with bilateral knee pain with history of torn ligaments. She denies any recent trauma, swelling or other concurrent complaints. She states she talked with her primary care doctor but does not know what else to do. She denies taking any medication. Quality is sharp. Severity is mild. Duration is couple of months. 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) Heparin Induced Thrombocytopen: No Hypertension: Yes Respiratory: Yes (COPD) Immunizations Current: Yes Seizures: Yes Tetanus Vaccination: < 5 Years Menopausal: Yes : 2 Para: 1 : 1 Past Surgical History Section: Yes Coronary Artery Bypass Graft: No Hysterectomy: No Other Surgery: Yes (nose thyroid) Family History Family Myocardial Infarction: Yes Family Hypercholesterolemia: Yes Social History Alcohol Use: No Tobacco Use: Yes (09/11 PPD) Substance Use: No Allergies-Medications (Allergen,Severity, Reaction): Uncoded Allergies: BP MED (Allergy, Mild, Itching, 12/13/17) PT IS UNSURE WHICH MEDICAITON IT IS THAT SHE HAD A REACTION TO Reported Meds & Prescriptions Reported Meds & Active Scripts Active Reported [Bp Med] 2.5 Mg PO BID Aspirin Low Dose (Aspirin) 81 Mg Chew 81 Mg CHEW DAILY Alendronate (Alendronate Sodium) 70 Mg Tab 70 Mg PO Q7D Lorazepam 1 Mg Tab 1 Mg PO HS PRN Simvastatin 20 Mg Tab 20 Mg PO DAILY Depakote DR (Divalproex Sodium) 500 Mg Tabdr 500 Mg PO TID Fluoxetine (Fluoxetine HCl) 40 Mg Cap 40 Cap PO DAILY Review of Systems Except as stated in HPI: all other systems reviewed are Neg Physical Exam Narrative GENERAL: 62-year-old female in no apparent distress SKIN: Focused skin assessment warm/dry. HEAD: Atraumatic. Normocephalic. EYES: Pupils equal and round. No scleral icterus. No injection or drainage. ENT: No nasal bleeding or discharge. Mucous membranes pink and moist. NECK: Trachea midline. No JVD. CARDIOVASCULAR: Regular rate and rhythm. No murmur appreciated. RESPIRATORY: No accessory muscle use. Clear to auscultation. Breath sounds equal bilaterally. MUSCULOSKELETAL: No obvious deformities. No clubbing. No cyanosis. No edema. No significant pain with palpation of main joints including bilateral knees, neurovascularly intact, no lacerations over, compartments soft. NEUROLOGICAL: Awake and alert. No obvious cranial nerve deficits. Motor grossly within normal limits. Normal speech. Steady gait Data Data Last Documented VS Vital Signs Date Time Temp Pulse Resp B/P (MAP) Pulse Ox O2 Delivery O2 Flow Rate FiO2 03/02/18 00:22 97.6 66 16 195/86 (122) 99 Room Air Orders Orders Ed Discharge Order (03/02/18 01:27) [facility] Medical Decision Making Medical Screen Exam Complete: Yes Emergency Medical Condition: No Medical Record Reviewed: Yes (Past history confirmed) Differential Diagnosis Arthritis, strain, sprain Narrative Course Patient with 2 month history of bilateral knee pain without specific joint tenderness. Stable vitals. No recent trauma. She agrees to hold on imaging and to take [id number] pain medication. Given return instructions Diagnosis Primary Impression: Bilateral knee pain Qualified Codes: M25.561 - Pain in right knee; M25.562 - Pain in left knee Patient Instructions: General Instructions Additional Instructions: tylenol as needed, follow with primary Med/Other Pt SpecificInfo: No Change to Meds Disposition: 01 DISCHARGE HOME Condition: Stable Sherine Ty MD Mar 02, 2018 01:30
== END 2018-03-02 01:53 | disposition home or self-care (01) ==
LOC: NEPE 00:05
DX: M25.561 Pain in right knee (principal); M25.562 Pain in left knee
CPT/HCPCS: 99282